=== PATIENT | female | born 1995 | race Caucasian/White ===

== ENCOUNTER 2019-12-29 13:10 | Emergency (ER) | payer BC, OTHER, SELFPAY ==
[2019-12-29 13:15] VITALS: BP 150/80; PULSE 80; RESP 18; TEMP 36.9; O2SAT 97
--- NOTE | 2019-12-29 15:18 | ED.BACK ---
HPI - Back Pain/Injury General Chief Complaint: Back Pain/Injury Stated Complaint: back pain/ fall on thursday Time Seen by Provider: 12/29/19 13:16 Source: patient Mode of arrival: ambulatory Limitations: no limitations History of Present Illness HPI Narrative: This is a 24 year old female that presents to the ER for low back pain since yesterday. Reports she did have a fall a couple days ago. Reports she tripped and fell forward and caught herself with her hands. Reports no pain after this fall. Reports yesterday she was giving her child a bath and went to stand up and felt a sharp pain on the left side of her back. Reports stiffness since then. Pain is worse with movement and relieved with rest and Acetaminophen. Denies fever, abdominal pain, dysuria, hematuria, saddle anesthesia, or bowel/bladder incontinence. Related Data Allergies Allergy/AdvReac Type Severity Reaction Status Date / Time aspirin AdvReac Unknown Abdominal Verified 12/29/19 15:27 Pain naproxen AdvReac Cramping Verified 12/29/19 15:27 of the Muscles Review of Systems Review of Systems: Narrative: CONSTITUTIONAL: Denies fever GASTROINTESTINAL: Denies abdominal pain, nausea, vomiting GENITOURINARY: Denies dysuria or hematuria. MUSCULOSKELETAL: Reports back pain, and myalgia. NEUROLOGIC: Denies numbness, or weakness. All systems reviewed & are unremarkable except as noted in HPI and below PMFSH Social History Social History Smoking packs per day: 0.5 Smoking cigarettes per day: 10.0 Years smoked: 5 Smoking pack-years: 2.50 Smoking status: Current every day smoker Tobacco type: cigarettes Second hand tobacco smoke exposure: Yes Alcohol intake: never Substance use: never Gender identity (if verbalized by the patient): Female Spiritual care concerns: No Exam Narrative: Exam Narrative: GENERAL: Well-appearing, well-nourished, and in no acute distress. HEAD: Normocephalic, atraumatic. EYES: EOMI. CHEST: Clear to auscultation. No respiratory distress. No wheezes rales or rhonchi HEART: Regular rate and rhythm. No murmur heard. Normal peripheral pulses. BACK: No midline spinal tenderness. Tender palpation of the left lumbar paraspinal musculature EXTREMITIES: Normal range of motion. No edema. Strength equal in bilateral lower extremities. Normal patellar reflexes SKIN: Warm, dry, no rash. NEURO: No focal deficits. Alert and oriented x3. PSYCH: Normal mood and affect Course Vital Signs Vital signs: Vital Signs Temperature 98.4 F 12/29/19 13:15 Pulse Rate 80 12/29/19 13:15 Respiratory Rate 18 12/29/19 13:15 Blood Pressure 150/80 H 12/29/19 13:15 Pulse Oximetry 97 12/29/19 13:15 Temperature 98.4 F 12/29/19 13:15 Pulse Rate 80 12/29/19 13:15 Respiratory Rate 18 12/29/19 13:15 Blood Pressure 150/80 H 12/29/19 13:15 Pulse Oximetry 97 12/29/19 13:15 MDM - Back Pain/Injury MDM Narrative Medical decision making narrative: Patient presents the emergency department for low back pain. Reports she stood up and felt a sharp pain in the left side of her low back. History consistent with muscle strain. She is neurologically intact. Patient was instructed to continue Tylenol and will be prescribed muscle relaxer as needed for pain. She is to follow-up with primary care doctor. She is given warnings to return to the ER Critical Care Time Critical Care Time Critical Care Time: No Discharge Plan Discharge Clinical Impression: Lumbar strain Qualifiers: Encounter type: initial encounter Qualified Code(s): S39.012A - Strain of muscle, fascia and tendon of lower back, initial encounter Patient Disposition: Home, Self-Care Condition: Stable Instructions: Muscle Strain (ED) Additional Instructions: Return to the ER if you experience weakness, numbness, bowel/bladder incontinence, or any other symptoms that are concerning to yo
[2019-12-29] MEDS: ACETAMINOPHEN 500 MG TABLET 1000 MG PO (15:51)
== END 2019-12-29 16:23 | disposition home or self-care (01) ==
PROVIDERS: Emergency Provider Emergency Medicine; PCP Internal Medicine
DX: S39.012A Strain of muscle, fascia and tendon of lower back, initial encounter (principal); F17.210 Nicotine dependence, cigarettes, uncomplicated; X50.9XXA Other and unspecified overexertion or strenuous movements or postures, initial encounter
CPT/HCPCS: 96372; 99283; A9270; J3360

== ENCOUNTER 2021-12-10 13:25 | Observation (INO) | payer OTHER, SELFPAY ==
[2021-12-10 14:07] VITALS: BP 137/79; PULSE 76
[2021-12-10 14:30] VITALS: TEMP 36.4
[2021-12-10 15:06] LABS: Appearance Urine Clear (Clear); Bilirubin Urine Negative (Negative); Blood Urine 3+ (Negative); Color Urine Yellow (Yellow); Glucose Urine UA 1+ mg/dL (Negative); Ketones Urine Negative (Negative); Leukocyte Esterase Ur Negative LEU/UL (NEGATIVE); Nitrate Urine Negative (Negative); Protein Urine 2+ mg/dL (Negative); Urobilinogen Urine 0.2 mg/dL (<2.0); pH Urine 7.5 (5.0-9.0)
[2021-12-10 15:16] LABS: RBC Urine >75 /hpf (0-2); Squamous Epithelial Cell Urine Rare /hpf (Few)
[2021-12-10 15:30] LABS: Add Urine Microscopic? YES
--- NOTE | 2021-12-10 17:25 | OBADM ---
This patient, Nas Veliz, admitted to the OB room OB Post 113 for observation. Patient/family oriented to hospital policies and general routines including ID bracelet, bed and alarms, visiting hours, pain management, procedures, bathroom and other care routines, personal items, smoking policy, room service/diet, and visiting hours. Patient/Family are encouraged to report perceived risks to care and to ask questions if they do not understand what they are told or what they should do.
--- NOTE | 2021-12-10 17:30 | PC.NURSE ---
1547-SEvita STALLWORTH called,informed pt came in after being started on macrobid on Thursday for an UTI. She states she feels worse now with right sided back pain and lower abdominal pressure. Read UA results, orders received for antibiotics to be sent out for pt.
--- NOTE | 2021-12-10 17:32 | PC.NURSE ---
1611-SEvita [facility] called back,informed pt has an allergy to amoxicillin. New order received to send out clindamycin for pt to start at home.
--- NOTE | 2021-12-11 19:15 | PM.OBTRLD ---
OB - Triage/Final Diagnosis Visit Information Date of evaluation: 12/10/21 Reason for evaluation: other (UTI) Comments/Additional reasons for admission: I have assessed the risk for this patient, Nas Veliz, and determined that she would benefit from observation care. Evaluation Laboratory results: Laboratory Tests 12/10/21 14:38 Urine Color Yellow Urine Appearance Clear Urine pH 7.5 Ur Specific [place] 1.020 Urine Protein 2+ H Urine Glucose (UA) 1+ H Urine Ketones Negative Ur Blood (Man) 3+ H Urine Nitrate Negative Urine Bilirubin Negative Urine Urobilinogen 0.2 Ur Leukocyte Esterase Negative Urine RBC >75 H Ur Squamous Epith Cells Rare
--- NOTE | 2021-12-11 19:16 | PM.IMHP ---
H&P: HPI History of Present Illness Date/Time: 12/11/21 19:16 pt admitted for increased right flank pain, being tx with antibiotics for UTI and returned this am with increasing pain and vomiting us showed left kidney stone, nonobstructing, and mild right hydronephrosis Chief Complaint: Flank pain Review of Systems Review of Systems: All systems reviewed & are unremarkable except as noted in HPI and below PMFSH Past Medical History Medical History (Updated 03/20/20 @ 16:22 by Fernando Archer MD) Anemia Anxiety Depression Diabetes borderline Fracture multiple Hypertension Miscarriage Scoliosis Surgical History Surgical History H/O adenoidectomy Hx of tonsillectomy Family History Family History Mother Family history of thyroid disease Hypertension Father Hypertension Family history of type 2 diabetes mellitus Grandparent Hypertension Sibling Patient's brother is in good health Family history of type 1 diabetes mellitus, Onset Age: 13 Social History Social History Smoking packs per day: 0.5 Smoking cigarettes per day: 10.0 Years smoked: 5 Smoking pack-years: 2.50 Smoking status: Current every day smoker Tobacco type: cigarettes Second hand tobacco smoke exposure: Yes Alcohol intake: never Substance use: never Gender identity (if verbalized by the patient): Female Spiritual care concerns: No Meds Home Medications and Allergies Home Medications Medication Instructions Recorded Confirmed Type clindamycin HCl 300 mg PO BID #14 cap 12/10/21 12/11/21 Rx Allergies Allergy/AdvReac Type Severity Reaction Status Date / Time aspirin AdvReac Unknown Abdominal Verified 12/29/19 15:27 Pain amoxicillin AdvReac Rash Verified 12/11/21 07:27 naproxen AdvReac Cramping Verified 12/29/19 15:27 of the Muscles Exam Narrative: NO CVA tenderness Const: General: cooperative and healthy appearing Assessment and Plan Additional Plan 1. UTI/hydronephrosis continue antibiotics pain management
--- NOTE | 2021-12-11 19:19 | PM.OBPNLAB ---
Pain Control Date/time seen: 12/11/21 19:[address] Lawler plan abdominal us in the am
== END 2021-12-10 16:40 | disposition home or self-care (01) ==
PROVIDERS: Advanced Practice Midwife; Admitting Provider Obstetrics & Gynecology; Visit Provider Obstetrics & Gynecology
DX: O23.42 Unspecified infection of urinary tract in pregnancy, second trimester (principal); N39.0 Urinary tract infection, site not specified; O99.332 Smoking (tobacco) complicating pregnancy, second trimester; F17.210 Nicotine dependence, cigarettes, uncomplicated; Z3A.21 21 weeks gestation of pregnancy; N13.30 Unspecified hydronephrosis; N20.0 Calculus of kidney
CPT/HCPCS: 81001; 87086; G0378; G0379

== ENCOUNTER 2021-12-11 06:55 | Observation (INO) | payer OTHER, SELFPAY ==
--- NOTE | ~2021-12-11 | CT_ITS ---
EXAMINATION: CT abdomen pelvis wo con DATE: 12/11/2021 21:36 INDICATION: Acute right flank pain, patient is 21 weeks TECHNIQUE: Computed tomography (CT) of the abdomen and pelvis was performed without intravenous contr ast. The dose-length product (DLP) was 686.96 mGy-cm. Automated exposure control and iterative recons truction technique were employed. COMPARISON: None FINDINGS: The lung bases are clear. The heart size is normal. The liver, spleen, pancreas, gallbladde r, and adrenal glands are normal. There is a 12 mm stone at the right ureterovesicular junction which causes mild to moderate right hydroureteronephrosis. Nonobstructing stones of the right kidney measu re up to 7 mm. There is a 9 mm nonobstructing stone of the left kidney upper pole. No pathologically enlarged abdominal or pelvic lymph nodes are identified. There is no free intraperitoneal gas or evid ence of bowel obstruction. A gravid uterus is noted. IMPRESSION: 1. 12 mm stone at the right ureterovesicular junction causing mild to moderate right hydroureteroneph rosis. 2. Bilateral nonobstructing nephrolithiasis. Reviewed, dictated and finalized at location F. IMPRESSION: 1. 12 mm stone at the right ureterovesicular junction causing mild to moderate right hydroureteronephrosis. 2. Bilateral nonobstructing nephrolithiasis.
--- NOTE | ~2021-12-11 | US_ITS ---
EXAMINATION: US renal BI DATE: 12/11/2021 08:25 INDICATION: Right flank pain. TECHNIQUE: Multiple ultrasound grayscale images of the kidneys were obtained. COMPARISON: None. FINDINGS: The right kidney measures 14.0 x 7.3 x 7.0 cm. The left kidney measures 12.7 x 4.7 x 5.7 cm. The kidn eys demonstrate normal parenchymal echogenicity. There is mild right hydronephrosis. There is a stone in left kidney measuring approximately 1.6 cm. The bladder is normal. IMPRESSION: 1. Mild right hydronephrosis. 2. Nonobstructing left kidney stone. Reviewed, dictated and finalized at location B.
--- NOTE | ~2021-12-11 | US_ITS ---
EXAMINATION: US OB limited EXAM DATE: 12/11/2021 08:25 INDICATION: HR, placenta check. 2nd trimester. TECHNIQUE: Pelvic obstetrical transabdominal sonogram was performed by a technologist. There are mu ltiple grayscale and Doppler images available for interpretation. Comparison is made to prior examina tion from 09/07/2019. FINDINGS: There is a single fetus identified in vertex presentation with a heart rate of 141 beats pe r minute. The placenta is located in the anterior position. There is no sonographic evidence of retr oplacental hemorrhage identified. There is subjectively expected amount of amniotic fluid. IMPRESSION: 1. Single fetus in vertex presentation with heart rate 141 beats per minute. 2. No sonographic evidence of placental abnormality. Reviewed, dictated and finalized at location A.
[2021-12-11 07:19] VITALS: BMI 36.2
--- NOTE | 2021-12-11 07:20 | OBADM ---
This patient, Nas Veliz, admitted to the OB room OB Post 116 for observation. Patient/family oriented to hospital policies and general routines including ID bracelet, bed and alarms, visiting hours, pain management, procedures, bathroom and other care routines, personal items, smoking policy, room service/diet, and visiting hours. Patient/Family are encouraged to report perceived risks to care and to ask questions if they do not understand what they are told or what they should do.
--- NOTE | 2021-12-11 07:25 | PC.NURSE ---
Shaun Loving CNM in unit. Order to dopple FHT and have ultrasound perform well being and placenta check. Order to not do continuous monitoring on patient.
[2021-12-11 07:28] VITALS: RESP 18; TEMP 36.5
[2021-12-11 07:29] VITALS: BP 145/85; PULSE 72
--- NOTE | 2021-12-11 07:33 | PC.NURSE ---
Notified Dr. Rashid and Shaun Loving CNM of patient allergy to amoxicillin. Order to proceed with administration of Rocephin IVPB and monitor for reaction.
--- NOTE | 2021-12-11 07:35 | PC.NURSE ---
Shaun Loving CNM and Baltazar Elmore, [employer] student at bedside. Plan of care discussed with patient. Patient states understanding of plan of care and agrees to plan of care. Patient denies questions.
[2021-12-11 07:55] LABS: Hematocrit 33.9 % (37.0-47.0); Hemoglobin 10.8 g/dL (12.0-15.0); Mean Corpuscular HGB Conc 31.9 g/dl (32-36); Mean Corpuscular Hemoglobin 27.1 pg (26-34); Mean Platelet Volume 11.7 fl (7.4-10.4); Platelet Count Result 169 k/mm3 (150-375); Red Blood Count 3.99 M/mm3 (4.2-5.4); Red Cell Distribution Width 13.3 % (11.5-14.5); White Blood Count 14.7 K/mm3 (4.5-10.0)
[2021-12-11 08:03] LABS: Alanine Aminotransferase 11 U/L (4-35); Albumin Level 3.6 g/dL (3.5-5.1); Alkaline Phosphatase 90 U/L (38-126); Anion Gap 7 mmol/L (8-16); Aspartate Amino Transferase 16 U/L (14-36); Bilirubin,Total 0.2 mg/dL (0.2-1.3); Blood Urea Nitrogen 6 mg/dL (7-17); Carbon Dioxide 22 mmol/L (22-30); Chloride 105 mmol/L (98-107); Estimated CRCL calculation 132 ml/min; Estimated Glomerular Filt Rate > 60; Glucose 133 mg/dL (65-110); Potassium 3.6 mmol/L (3.4-5.0); Sodium 134 mmol/L (137-145)
[2021-12-11] MEDS: ONDANSETRON INJ 4 MG/2 ML VIAL IV PUSH ×3 (08:31→20:52)
[2021-12-11] MEDS: SODIUM CHLORIDE 0.9% IV 1,000 ML 150 ML IV CONT (08:38)
[2021-12-11] MEDS: cefTRIAXone 2 GM in SODIUM CHLORIDE 0.9% IV 100 ML 200 ML IVPB (08:55)
[2021-12-11] MEDS: LACTATED RINGERS 1,000 ML 125 ML IV CONT ×2 (09:39→16:55)
[2021-12-11 09:46] VITALS: BP 146/72; PULSE 70
--- NOTE | 2021-12-11 10:00 | PC.NURSE ---
Lynda Loving called for update on pt status. Lab results given. Update on pt pain level and BPs given. Orders received.
[2021-12-11] MEDS: CYCLOBENZAPRINE HCL 10 MG TABLET PO (10:11)
--- NOTE | 2021-12-11 11:16 | PC.NURSE ---
Notified Shaun Loving CNM of patient continued pain following medication administration. Patient reports pain has increased since pain medication as administered, patient now reporting nausea. Order to perform SVE and call following exam.
[2021-12-11] MEDS: fentaNYL CITRATE INJ (*CRX) 100 MCG/2 ML VIAL 50 MCG IV PUSH ×3 (11:33→20:53)
--- NOTE | 2021-12-11 12:31 | PC.NURSE ---
Shaun Loving updated on pt pain level at a 6 after fentynl, but increasing already. New orders received.
[2021-12-11] MEDS: HYDROcodone/acetaminophen (*CRX) 5-325 MG TABLET 1 TAB PO (12:37)
--- NOTE | 2021-12-11 12:43 | PC.NURSE ---
Overrode 3 medications from [facility] due to new medication orders not showing up. Charge nurse made aware and called IT who discovered a problem and working on it now.
--- NOTE | 2021-12-11 14:30 | PC.NURSE ---
Updated Shaun Loving on patient pain scale of 8/10
--- NOTE | 2021-12-11 15:20 | PC.NURSE ---
Updated Shaun Loving on pt pain and request for IV fentanyl and nausea medication. Orders received.
[2021-12-11 15:30] VITALS: RESP 16; TEMP 36.9
[2021-12-11 15:31] VITALS: BP 138/74; PULSE 83
[2021-12-11 17:18] LABS: Hematocrit 29.5 % (37.0-47.0); Hemoglobin 9.7 g/dL (12.0-15.0); Mean Corpuscular HGB Conc 32.9 g/dl (32-36); Mean Corpuscular Hemoglobin 27.6 pg (26-34); Mean Corpuscular Volume 83.8 fl (80-100); Platelet Count Result 180 k/mm3 (150-375); Red Blood Count 3.52 M/mm3 (4.2-5.4); Red Cell Distribution Width 13.2 % (11.5-14.5); White Blood Count 14.6 K/mm3 (4.5-10.0)
[2021-12-11] MEDS: HYDROcodone/acetaminophen (*CRX) 10-325 MG TABLET 1 TAB PO (18:16)
--- NOTE | 2021-12-11 18:40 | PC.NURSE ---
Inder updated on pt status and pain and nausea. Orders given for Pepcid.
[2021-12-11] MEDS: FAMOTIDINE 20 MG/2 ML VIAL IV PUSH (18:51)
--- NOTE | 2021-12-11 18:58 | PC.NURSE ---
Report given to ANTONY Sweeney.
--- NOTE | 2021-12-11 19:10 | PC.NURSE ---
K-pad applied to right lower back per pt request
--- NOTE | 2021-12-11 21:20 | PC.NURSE ---
CT here to transport pt. Pt moved to stretcher to go to CT.
--- NOTE | 2021-12-11 21:40 | PC.NURSE ---
pt back in room from CT
[2021-12-11 22:42] VITALS: BP 129/75; PULSE 85
[2021-12-11] MEDS: oxyCODONE/ACETAMINOPHEN (*CRX) 5-325 MG TABLET 1 TABLET PO (23:12)
[2021-12-12] VITALS (10 sets, daily range): BP systolic 100–136; BP diastolic 55–75; PULSE 70–87; RESP 12–23; TEMP 36.8–37.8; O2SAT 98–100
[2021-12-12] MEDS: DEXTROSE 5%/LACTATED RINGERS 1,000 ML 100 ML IV CONT (00:04)
--- NOTE | 2021-12-12 02:31 | PC.NURSE ---
2032- pt crying in pain- 910 right flank pain. order received from Shaun Loving CNM to give Fentanyl 50mcg IV once. Will consult Dr. Lawler regarding pain .
--- NOTE | 2021-12-12 02:34 | PC.NURSE ---
2043- Mayra STALLWORTH and Baltazar Elmore student financial controller at bedside. pt feeling nauseous. will give zofran for nausea.
--- NOTE | 2021-12-12 02:36 | PC.NURSE ---
2058- Dr. Lawler at bedside. pain location and type of pain discussed. Order received for CT abd/pelvis.
--- NOTE | 2021-12-12 02:37 | PC.NURSE ---
2211- called Shaun Loving CNM- discussed CT results- orders received for urology consult, continue IV fluids, dopple heart tones once a shift, and continue to manage pain. order received for Toradol 30mg IV once. will continue to monitor pt and call with questions/concerns.
--- NOTE | 2021-12-12 02:38 | PC.NURSE ---
2225- went in to discuss plan of care with pt. pt not able to take any type of NSAIDS due to severe abd pain.
--- NOTE | 2021-12-12 02:40 | PC.NURSE ---
2240- SKylah Loving [facility] informed that pt not able to take any type of NSAIDS. will discuss with Dr. Lawler and call back with pain management plan.
--- NOTE | 2021-12-12 02:41 | PC.NURSE ---
2245- SKylah Loving [facility]- called back. order received for Percocet 5/325mg every 4 hours PRN. will continue to monitor and call if questions/concerns.
[2021-12-12] MEDS: oxyCODONE/ACETAMINOPHEN (*CRX) 5-325 MG TABLET 1 TABLET PO ×4 (03:50→19:57)
--- NOTE | 2021-12-12 05:47 | PC.NURSE ---
pt resting quietly. discussed plan for the day- urology consult, IV fluids, pain management.
--- NOTE | 2021-12-12 07:49 | PM.OBPNVD ---
OB - PN: Subj Subjective Date/time seen: 12/12/21 07:49 Pain is not controlled on Percocet. Continued pain however. Stone revealed on CT scan the abdomen and pelvis. 1.2 cm at the right UVJ. OB - PN: Obj Data Labs CBC & Chem 7: 12/11/21 17:03 12/11/21 07:46 Labs: Laboratory Results - last 24 hr 12/11/21 12/11/21 12/11/21 07:46 07:46 17:03 WBC 14.7 H 14.6 H RBC 3.99 L 3.52 L Hgb 10.8 L 9.7 L Hct 33.9 L 29.5 L MCV 85.0 83.8 MCH 27.1 27.6 MCHC 31.9 L 32.9 RDW 13.3 13.2 Plt Count 169 180 MPV 11.7 H 12.0 H Sodium 134 L Potassium 3.6 Chloride 105 Carbon Dioxide 22 Anion Gap 7 L BUN 6 L Creatinine 0.70 Estim Creat Clear Calc 132 Estimated GFR > 60 Glucose 133 H Calcium 9.0 Total Bilirubin 0.2 AST 16 ALT 11 Alkaline Phosphatase 90 Total Protein 7.0 Albumin 3.6 Imaging Radiologist's impression: Impressions Renal Ultrasound 12/11/21 08:30 IMPRESSION: 1. Mild right hydronephrosis. 2. Nonobstructing left kidney stone. ADDENDUM: 12/11/21901 Upon further review, the 1.6 cm echogenic focus in left kidney does not definitely shadow and is indeterminant for a nonobstructing kidney stone. Obstetrics Ultrasound 12/11/21 08:31 IMPRESSION: 1. Single fetus in vertex presentation with heart rate 141 beats per minute. 2. No sonographic evidence of placental abnormality. Abdomen/Pelvis CT 12/11/21 21:46 IMPRESSION: 1. 12 mm stone at the right ureterovesicular junction causing mild to moderate right hydroureteronephrosis. 2. Bilateral nonobstructing nephrolithiasis. OB - PN A/P Assessment and Plan (1) Kidney stone complicating : Code(s): O26.839 - related renal disease, unspecified trimester; N20.0 - Calculus of kidney Status: Acute Assessment and Plan: improved pain on Percocet. Continued pain however. Stone revealed on CT scan the abdomen and pelvis. 1.2 cm at the right UVJ. urology to see her today. Consider discharge with outpatient pain management and observation. To follow-up within a week. Time Spent With Patient Time: Total time spent is greater than 50% in coordination of care (as documented) at patient's floor/unit and/or counseling patient: Review of Systems Review of Systems: All systems reviewed & are unremarkable except as noted in HPI and below Constitutional: Constitutional: Denies chills, Denies fatigue, Denies fever(s) and Denies weakness Eyes: Eyes: Denies blurry vision, Denies change in vision, Denies loss of peripheral vision, Denies loss of vision, Denies other visual disturbances and Denies eye pain ENT: Denies vertigo, Denies dizziness, Denies hearing loss, Denies mouth pain, Denies nasal obstruction, Denies neck mass and Denies neck pain Cardiovascular: Cardiovascular: Denies chest pain, Denies diaphoresis, Denies syncope, Denies leg edema and Denies dyspnea Respiratory: Respiratory: Denies chest congestion, Denies cough, Denies hemoptysis, Denies dyspnea and Denies wheezing Gastrointestinal: Gastrointestinal: Denies abdominal pain, Denies constipation, Denies diarrhea, Denies nausea and Denies vomiting Genitourinary: Genitourinary: Denies hematuria, Denies change in libido, Denies nocturia, Denies genital lesions, Denies flank pain and Denies urinary urgency Musculoskeletal: Musculoskeletal: Denies abnormal gait, Denies back pain, Denies myalgias, Denies arthralgias, Denies joint swelling, Denies muscle weakness and Denies neck pain Integumentary/Breasts: Skin/Breast: Denies swelling, Denies breast pain, Denies breast mass, Denies dry skin, Denies nipple discharge, Denies unusual bruising and Denies jaundice Neurologic: Denies Neuro-related abnormal movements, Denies Abnormal speech present, Denies abnormal gait, Denies behavioral changes, Denies confusion, Denies vertigo, Denies dizziness, Denies syncope, Denie
[2021-12-12] MEDS: ONDANSETRON INJ 4 MG/2 ML VIAL IV PUSH ×2 (08:17→18:11)
--- NOTE | 2021-12-12 08:28 | PC.NURSE ---
4202 heart rate doppled 140-147
--- NOTE | 2021-12-12 08:46 | WPDURCON ---
Assessment and Plan Assessment and plan (1) Kidney stone complicating : Code(s): O26.839 - related renal disease, unspecified trimester; N20.0 - Calculus of kidney Status: Acute (2) Left ureteral stone: Code(s): N20.1 - Calculus of ureter Status: Acute Assessment and Plan: I have reviewed her images with Dr. Fang and discussed options of Cystoscopy with stone extraction versus placement of a right nephrostomy tube with changes until delivery. She understands the risks and benefits of both procedures with the main focus on risks during . She was also given the opportunity to watch the stone over the next 24 hours, however d/t the large size of the stone, she was informed that it is not passable and she would likely result in having either of the above procedures tomorrow. She has elected to move forward with cystoscopy and stone extraction with Dr. Fang today in the OR. Obtain Consent: Cystoscopy, right ureteroscopy with stone extraction, possible right stent placement, right retrograde pyelogram, holmium laser. Keep NPO. (3) Bilateral renal stones: Code(s): N20.0 - Calculus of kidney Status: Acute Assessment and Plan: Non obstructive. After delivery, I recommend a KUB and then ESWL for her stones in the future. No need to intervene at this time. Urology Consult Note HPI Date Seen: 12/12/21 Requesting Physician: Imelda Lawler MD Primary Care Provider: UNKNOWN,DOCTOR Consult Narrative Narrative: Nas Veliz is a 26 year old female who presented initially to OB on 12/10/21 with acute onset of right lower quadrant pain that radiated to her right flank. She is 21 weeks . She was treated for a UTI and discharged home. The next day her pain became more severe and was accompanied by nausea and vomiting. She denies gross hematuria, dysuria but is experiencing urgency and frequency of urination. She had a MEGAN done yesterday indicating right hydronephrosis and a non obstructive left stone. Her pain was not well controlled therefore a CT scan was done. The CT then revealed a 12mm right UVJ stone with mild to moderate right hydronephrosis and bilateral non obstructive stones measuring up to 9mm in the left kidney and 7mm in the right kidney. Her urine culture is negative. She was admitted for pain control and we were consulted. Her WBC is elevated at 14.6 and she is febrile with a low grade temperature of 100 this morning. Creatinine remains normal at 0.70. She denies a history of stones or chronic UTI's. Review of Systems Cardiovascular: Cardiovascular: Denies chest pain Respiratory: Respiratory: Reports no additional respiratory complaints Gastrointestinal: Gastrointestinal: Reports abdominal pain, Reports nausea and Reports vomiting Genitourinary: Genitourinary: Denies hematuria, Reports nocturia, Denies dysuria and Reports urinary urgency [facility] Past Medical History Medical History (Updated 12/12/21 @ 08:59 by Albina Roberto APRN) Anemia Anxiety Depression Diabetes borderline Fracture multiple Hypertension Miscarriage Scoliosis Surgical History Surgical History H/O adenoidectomy Hx of tonsillectomy Family History Family History Mother Family history of thyroid disease Hypertension Father Hypertension Family history of type 2 diabetes mellitus Grandparent Hypertension Sibling Patient's brother is in good health Family history of type 1 diabetes mellitus, Onset Age: 13 Social History Social History Smoking packs per day: 0.5 Smoking cigarettes per day: 10.0 Years smoked: 5 Smoking pack-years: 2.50 Smoking status: Current every day smoker Tobacco type: cigarettes Second hand tobacco smoke exposure: Yes Alcohol intake: never
[2021-12-12] MEDS: cefTRIAXone 2 GM in SODIUM CHLORIDE 0.9% IV 100 ML 200 ML IVPB (09:05)
[2021-12-12] MEDS: FAMOTIDINE 20 MG/2 ML VIAL IV PUSH (09:13)
--- NOTE | 2021-12-12 10:41 | WPDANESEPPF ---
Anes - Initial Pre Proc Eval Procedure: Operation Date: 12/12/21 12:30 Proposed Procedures p Cystoscopy, Right Retrograde Pyelogram, Right Stone Extraction, Possible Right Stent Placement, Possible Holmium Laser - Donny Fang MD Date/Time: 12/12/21 10:41 Surgeon: Imelda Lawler MD Pre Op Diagnosis: R Side Pain Patient Data Age: 26 Gender: F Height: 1.7 m Weight: 105 kg Last Vital Signs Temp 37.8 C H 12/12/21 07:40 Pulse 87 12/12/21 07:40 Resp 12 12/12/21 07:40 BP 127/67 12/12/21 07:40 Allergies Allergy/AdvReac Type Severity Reaction Status Date / Time aspirin AdvReac Unknown Abdominal Verified 12/29/19 15:27 Pain amoxicillin AdvReac Rash Verified 12/11/21 07:27 naproxen AdvReac Cramping Verified 12/29/19 15:27 of the Muscles Home Medications Medication Instructions Recorded Confirmed Type clindamycin HCl 300 mg PO BID #14 cap 12/10/21 12/11/21 Rx Laboratory Tests 12/11/21 17:03 WBC 14.6 K/mm3 H K/mm3 (4.5-10.0) RBC 3.52 M/mm3 L M/mm3 (4.2-5.4) Hgb 9.7 g/dL L g/dL (12.0-15.0) Hct 29.5 % L % (37.0-47.0) MCV 83.8 fl fl (80-100) MCH 27.6 pg pg (26-34) MCHC 32.9 g/dl g/dl (32-36) RDW 13.2 % % (11.5-14.5) Plt Count 180 k/mm3 k/mm3 (150-375) MPV 12.0 fl H fl (7.4-10.4) Patient hx anesthesia problems: none Family hx anesthesia problems: none Results Review: All pre-operative results and documents have been reviewed as part of the pre-operative evaluation. [facility] Past Medical History Medical History (Updated 12/12/21 @ 11:35 by Kalia Keller DO) Anemia Anxiety Depression Fracture multiple Hypertension Miscarriage Scoliosis Surgical History Surgical History H/O adenoidectomy Hx of tonsillectomy Family History Family History Mother Family history of thyroid disease Hypertension Father Hypertension Family history of type 2 diabetes mellitus Grandparent Hypertension Sibling Patient's brother is in good health Family history of type 1 diabetes mellitus, Onset Age: 13 Social History Social History Smoking packs per day: 0.5 Smoking cigarettes per day: 10.0 Years smoked: 5 Smoking pack-years: 2.50 Smoking status: Current every day smoker Tobacco type: cigarettes Second hand tobacco smoke exposure: Yes Alcohol intake: never Substance use: never Gender identity (if verbalized by the patient): Female Spiritual care concerns: No Anes - Eval Final PreProcedure Day of Procedure 12/12/21 10:41 Patient weight: obese Heart: regular rate and rhythm Lungs: clear to auscultation and normal air movement Airway: Mallampati scale class II Neurological: alert and oriented Last oral intake: >/= 8 hours ASA classification: II Emergent: no Anesthetic plan: proceed Anesthesia type and monitoring: general GIVS, regional spinal and standard monitoring Results Review: All pre-operative results and documents have been reviewed as part of the pre-operative evaluation. Informed Consent: The patient's anesthetic plan and its attendant risks and benefits were discussed with the patient/family/POA. Questions were solicited and answers provided to the satisfaction of the patient/family/POA.
[2021-12-12] MEDS: LACTATED RINGERS 1,000 ML 125 ML IV CONT (10:46)
[2021-12-12] MEDS: LACTATED RINGERS 1,000 ML 30 ML IV CONT ×2 (10:55→13:14)
--- NOTE | 2021-12-12 10:55 | PC.NURSE ---
1054 pt transported per or staff and stretcher to pre op
--- NOTE | 2021-12-12 11:57 | WPDHPUPDATE1 ---
History and Physical Update Update Date/Time: 12/12/21 11:57 History and Physical has been reviewed, including an updated exam of the patient. There are NO changes in the patient's condition. Risks, benefits, and alternatives have been discussed and questions answered. Patient agrees to proceed with procedure. Proceed with cystoscopy, right retrograde, right ureteroscopy with laser, stone extraction and stent placement.
--- NOTE | 2021-12-12 12:23 | SUR.PREOP ---
1055; PT HAS IL LR ON ANESTHESIA TUBING INFUSING AT O FROM OB RN.
--- NOTE | 2021-12-12 13:10 | W.PM.PROC2 ---
Procedure Note - Detailed Date of Procedure 12/12/21 Pre-op Diagnosis R Side Pain, presumed 12 mm right UVJ calculus Post-op Diagnosis Other (Simply debris at UVJ with edematous right ijeoma trigone) Procedure Performed Cystoscopy, right ureteroscopy, right stent placement 4.8 Guyanese contour Surgeon Donny Fang MD Anesthesia Spinal Description of Procedure Patient was taken to the operative suite and correctly identified. Once anesthesia was obtained she was placed in the dorsal lithotomy position and prepped and draped usual sterile fashion. A 22 Guyanese scope was inserted into the bladder. There are no tumors noted. The right ijeoma trigone is raised and inflamed. The opening contains what appears to be a calculus. We thus exchanged the scope out for a rigid ureteral scope. Simply touching the presumed stone with the ureteral scope and holmium laser fiber the area in question just disintegrated. The stone was as if it was just simply debris that had gathered at the UVJ. A rigid ureteral scope was inserted into the orifice there was no other stones noted. A mini flexible ureteral scope was then passed up into the kidney no other stone visualized along the course of the ureter. A guidewire was positioned well in the renal pelvis. We then placed a 4.8 Guyanese contour stent with the proximal end presumed to be coiled in the renal pelvis and the distal end coiled in the bladder. A string was left attached to the stent so the patient can remove that on Thursday. Bladder was drained. 2% viscous lidocaine was inserted into the urethra. Patient was taken recovery room stable condition. Urine Output 200 Drains Yes Packing No Pathology None sent Complications No immediate complications Condition Stable Disposition PACU
--- NOTE | 2021-12-12 13:26 | SUR.PHASEI ---
1325 Sabine Eisenberg(ob rn) at bedside to check tones, hr-130, all is well
--- NOTE | 2021-12-12 13:49 | SUR.PHASEI ---
1330 patient has feeling in her feet but is unable to move feet/legs
--- NOTE | 2021-12-12 14:11 | SUR.PHASEI ---
1410 patient has feeling in b/l legs/feet but is unable to move feet. patient is able to squeeze butt cheeks together
[2021-12-12] MEDS: fentaNYL CITRATE INJ (*CRX) 100 MCG/2 ML VIAL 50 MCG IV PUSH (15:21)
--- NOTE | 2021-12-12 15:52 | PC.NURSE ---
1506- called,informed pt is back from PACU and is rating her pain a 9/10. Orders received for fentanyl now and percocet for pain management throughout the night. Pt will stay overnight.
[2021-12-12] MEDS: fentaNYL CITRATE INJ (*CRX) 100 MCG/2 ML VIAL IV PUSH (18:02)
[2021-12-13] MEDS: oxyCODONE/ACETAMINOPHEN (*CRX) 5-325 MG TABLET 1 TABLET PO ×4 (00:03→13:00)
[2021-12-13 00:05] VITALS: BP 121/67; PULSE 79; TEMP 36.6
[2021-12-13] MEDS: ONDANSETRON INJ 4 MG/2 ML VIAL IV PUSH ×3 (01:31→13:00)
[2021-12-13 04:20] VITALS: BP 118/66; PULSE 80
--- NOTE | 2021-12-13 07:28 | P.PNOB_ITS ---
OB - PN: Subj Subjective Date/time seen: 12/13/21 07:28 s/p cystoscopy and stent placement. Pt doing well, pain managed with percocet and nausea with zofran. uncomplicated obstetric hx OB - PN: Obj Data Labs CBC & Chem 7: 12/11/21 17:03 12/11/21 07:46 OB - PN A/P Plan Comments: 1. post op cystoscopy and stent placement pain management will ok for discharge pending urology visit, plan percocet at [facility] for pain relief Time Spent With Patient Time: Total time spent is greater than 50% in coordination of care (as documented) at patient's floor/unit and/or counseling patient: Review of Systems Review of Systems: All systems reviewed & are unremarkable except as noted in HPI and below Exam Const: General: cooperative, healthy appearing and comfortable
[2021-12-13 08:00] VITALS: TEMP 36.4
[2021-12-13 08:03] VITALS: BP 114/62; PULSE 65
--- NOTE | 2021-12-13 08:55 | WPDANESPN ---
Anes - Prog Note Post-Op Date/Time: 12/13/21 08:55 Cardiovascular status: normal Respiratory status: normal Airway patency: baseline Mental status: baseline Post-Op hydration status: normal Vital Signs: Last Vital Signs Temp 97.6 F 12/13/21 08:00 Pulse 65 12/13/21 08:03 Resp 15 12/12/21 15:00 BP 114/62 12/13/21 08:03 Pulse Ox 99 12/12/21 14:20 Pain Score (VAS): 0 I/O: Intake & Output 12/12/21 12/13/21 12/13/21 23:59 07:59 15:59 Intake Total 1000 Output Total 2050 Balance -1050 Laboratory Tests 12/11/21 17:03 12/11/21 07:46 Post-procedural complaints: none Patient Feedback: Patient satisfied with anesthetic care.
[2021-12-13] MEDS: cefTRIAXone 2 GM in SODIUM CHLORIDE 0.9% IV 100 ML 200 ML IVPB (09:05)
--- NOTE | 2021-12-13 12:44 | WPDUROPN2 ---
Progress Note: A&P Assessment and Plan (1) Bilateral renal stones: Code(s): N20.0 - Calculus of kidney Status: Acute Assessment and Plan: Will plan to f/u in the office after delivery in the fall to discuss an ESWL. NO further intervention at this time. (2) Left ureteral stone: Code(s): N20.1 - Calculus of ureter Status: Acute Assessment and Plan: Stone not present, unsure of the type of material blocking the UO, howver not of stone consistency. It was removed in it's entirety and a stent was placed with a string left on it. She will remove the stent on Thursday at home. No need for further intervention. Subjective Subjective Date/Time Seen: 12/13/21 12:44 POD #1 Cystoscopy, right ureteroscopy, right stent placement 4.8 Burkinan contour Patient doing very well today, pain is much improved. No stone was removed as the material blocking the ureter was easily extracted but didn't consist of stone substance. A stent was left in which she is tolerating well. Review of Systems Cardiovascular: Cardiovascular: Denies chest pain Respiratory: Respiratory: Reports no additional respiratory complaints Gastrointestinal: Gastrointestinal: Reports abdominal pain, Denies nausea and Denies vomiting Genitourinary: Genitourinary: Reports hematuria, Denies dysuria, Denies pelvic pain, Denies flank pain and Reports urinary urgency Exam Resp: Effort & Inspection: normal respiratory effort Cardio: Rate: regular rate GI: GI Palp: Yes Soft to palpation and No Tenderness to palpation present (GI) : General: Yes no CVA tenderness Extrem: General: no edema Objective Data Vital Signs Vital Signs: Vital Signs - 24 hr 12/12/21 13:20 12/12/21 13:35 12/12/21 13:50 Temperature Pulse Rate 70 75 76 Respiratory Rate 23 H 20 18 Blood Pressure 100/55 L 116/55 L 121/59 L Pulse Oximetry 98 100 100 12/12/21 14:05 12/12/21 14:20 12/12/21 15:00 Temperature 99.9 F H Pulse Rate 80 78 84 Respiratory Rate 22 H 22 H 15 Blood Pressure 120/62 116/65 136/75 Pulse Oximetry 99 99 12/12/21 15:01 12/13/21 00:05 12/13/21 04:20 Temperature 97.8 F Pulse Rate 84 79 80 Respiratory Rate Blood Pressure 136/75 121/67 118/66 Pulse Oximetry 12/13/21 08:00 12/13/21 08:03 Temperature 97.6 F Pulse Rate 65 Respiratory Rate Blood Pressure 114/62 Pulse Oximetry Intake/Output Intake/Output: Intake & Output 12/10/21 12/11/21 12/12/21 12/13/21 23:59 23:59 23:59 23:59 Intake Total 1200 2450 1100 Output Total 450 1800 2150 Balance 750 650 -1050 Meds/Results Medications: Active Medications Generic Name Dose Route Start Last Admin Trade Name Freq PRN Reason Stop Dose Admin Sodium Chloride 1,000 mls @ 150 mls/hr 12/11/21 07:35 12/11/21 09:40 Normal Saline Iv IV CONT 0 mls/hr .[id number] VENKATESH Infusion Ceftriaxone Sodium 2 gm/ 100 mls @ 200 mls/hr 12/12/21 09:00 12/13/21 09:40 Sodium Chloride IVPB Infused Q24H VENKATESH Infusion Ondansetron HCl 4 mg 12/11/21 20:45 12/13/21 08:11 Ondansetron Inj 4 Mg/2 Ml Vial IV PUSH 4 mg Q4H PRN Administration Nausea And Vomiting Oxycodone/Acetaminophen 1 tablet 12/11/21 22:46 12/13/21 07:59 Oxycodone/Acetaminophen (*Crx) 5-325 Mg Tablet PO 1 tablet Q4H PRN Administration Pain Rated 7-10 Radiology Results: ITS Impressions Renal Ultrasound 12/11/21 08:30 IMPRESSION: 1. Mild right hydronephrosis. 2. Nonobstructing left kidney stone. ADDENDUM: 12/11/21 09 Upon further review, the 1.6 cm echogenic focus in left kidney does not definitely shadow and is indeterminant for a nonobstructing kidney stone. Obstetrics Ultrasound 12/11/21 08:31 IMPRESSION: 1. Single fetus in vertex presentation with heart rate 141 beats per minute. 2. No sonographic evidence of placental abnormality. Abdomen/Pelvis CT 12/11/21 21:46 IMPRESSION: 1. 12 mm stone at the right ureterovesicular j
[2021-12-13 13:04] VITALS: BP 126/63; PULSE 76
[2021-12-13 13:18] VITALS: TEMP 36.6
--- NOTE | 2021-12-18 08:00 | P.DS_ITS ---
DS: Admitting Diagnosis Discharge Date 12/13/21 Admitting Diagnosis kidney stone OB - DS: Summary OB Procedures : None OB Procedures Intrapartum: Other (undelivered) OB Procedures: : None Peripartum Data Procedures: Procedures Operation Date: 12/12/21 12:30 Actual Procedure Side Surgeon p Cystoscopy, Right Ureteroscopy, Right Stent Placement Right Donny Fang MD Time Spent with Patient Time attestation: Total time spent providing and/or coordinating discharge services: Discharge Plan Discharge Consulting providers: Jaquan Rosenbaum ; Lynda Loving ; Kennedy Delvalle V. ; Donny Fang ; Albina Roberto ; Chong Bishop ; Speedy Dailey Discharging Clinician: Lynda Loving Patient Disposition: Home, Self-Care Activity: as tolerated Diet: as tolerated Discharge Instructions: Urology Instructions: * Call the office to schedule an appt to f/u on your bilateral kidney stones after delivery in the fall. * Remove your stent on Thursday at home. * If you experience blood in the urine, cloudy urine this can be normal, even up to one week after stent removal. * If those symptoms continue one week post stent removal, you develop severe pain or a fever, please contact our office or go to the ER. OB ANTEPARTUM DISCHARGE INSTRUCTIONS This information is given to help you properly care for yourself at home after your discharge from the hospital. Follow these instructions until your doctor tells you otherwise. DIET: Eat Three Well Balanced Meals per Day Drink at Least Eight 8-Ounce Glasses of Caffeine-Free Beverages Daily ACTIVITY: As Tolerated Side Lying Position is Preferable RETURN TO LABOR AND DELIVERY IF YOU HAVE: Any Change In Baby's Normal Movement Pattern Any Leakage of Fluid More than 4 Contractions in an Hour Vaginal Bleeding Contractions may feel like abdominal pain, tightening, cramping, pressure, back ache, or thigh ache. FOLLOW-UP CARE: Call Shaun Loving CNM Office and Make Appointment. Valuables released to patient or family? N/A Medications from home returned to patient? N/A I Have Received Information Regarding Effective Home Pain Management I Acknowledge Receipt of and Understand the Above Instructions IF YOU HAVE ANY QUESTIONS REGARDING THESE INSTRUCTIONS, PLEASE CALL [phone]. IF PROBLEMS ARISE, CALL YOUR PROVIDER. IF EMERGENCY CARE IS NEEDED, [facility]S EMERGENCY ROOM IS AVAILABLE 24 HOURS A DAY. Patient Instructions: Antibiotic Form Stand Alone Forms: General Discharge Information Follow-up/Referrals: Donny Fang MD [Physician] - Lynda Loving CNM [Certified Nurse Zipper Sewing Machine Operator] - Call for Appointment Discharge Medications: New hydrocodone-acetaminophen 5-325 mg tablet 1 tablet PO Q4H PRN (Reason: pain) Qty: 25 RF: 0 ondansetron 8 mg tablet,disintegrating 8 mg PO Q8H Qty: 30 RF: 3 Continued clindamycin HCl 300 mg Capsule 300 mg PO BID Qty: 14 RF: 0 Date of admission: 12/11/21 06:55 Primary Care Provider: UNKNOWN,DOCTOR Admitting Provider: Imelda Lawler Attending physician on admission: Imelda Lawler Condition: Stable
== END 2021-12-13 13:30 | disposition home or self-care (01) ==
PROVIDERS: Advanced Practice Midwife; Urology; Admitting Provider Obstetrics & Gynecology; Visit Provider Obstetrics & Gynecology
PROC: (CPT 52352; principal; 2021-12-12 12:30)
DX: O26.832 Pregnancy related renal disease, second trimester (principal); N13.2 Hydronephrosis with renal and ureteral calculous obstruction; O99.332 Smoking (tobacco) complicating pregnancy, second trimester; F17.210 Nicotine dependence, cigarettes, uncomplicated; Z3A.21 21 weeks gestation of pregnancy
CPT/HCPCS: 52332; 36415; 74176; 76775; 76815; 80053; 85027; 96361; 96365; 96375; 96376; A9270; C1769; C2617; G0378; G0379; J0131; J0696; J1100; J2405; J2704; J3010; J7030; J7120; J7121

== ENCOUNTER 2021-12-29 23:51 | Observation (INO) | payer OTHER, SELFPAY ==
--- NOTE | ~2021-12-29 | US_ITS ---
EXAMINATION: US retroperitoneal comp DATE: 12/30/2021 09:06 INDICATION: Flank pain, recent lithotripsy TECHNIQUE: Multiple grayscale and Doppler ultrasound images of the kidneys were obtained. COMPARISON: CT, 12/11/2021 FINDINGS: The right kidney measures 12.8 x 6.2 x 5.1 cm. Resistive indices are 0.73, 0.67, and 0.58 i n the superior, mid, and inferior kidney, respectively. The left kidney measures 11.4 x 5.0 x 5.7 cm. Resistive indices are 0.72, 0.72, and 0.74 in the superior, mid, and inferior kidney, respectively. There is a 1.4 cm stone of the left kidney upper pole. The kidneys demonstrate normal parenchymal ech ogenicity. Bilateral jets are visualized. There is no hydronephrosis. The bladder is normal. IMPRESSION: 1. Left nephrolithiasis, otherwise normal kidneys without hydronephrosis. Reviewed, dictated and finalized at location A.
[2021-12-30] VITALS (11 sets, daily range): BP systolic 124–134; BP diastolic 56–88; PULSE 71–89; RESP 16–17; TEMP 36.4–36.8; BMI 38.7
--- NOTE | 2021-12-30 00:22 | OBADM ---
This patient, Nas Veliz, admitted to the OB room OB Post 117 for observation. Patient/family oriented to hospital policies and general routines including ID bracelet, bed and alarms, visiting hours, pain management, procedures, bathroom and other care routines, personal items, smoking policy, room service/diet, and visiting hours. Patient/Family are encouraged to report perceived risks to care and to ask questions if they do not understand what they are told or what they should do.
[2021-12-30] MEDS: LACTATED RINGERS 1,000 ML 999 ML IV CONT (00:50)
[2021-12-30 01:18] LABS: Appearance Urine Slightly Cloudy (Clear); Bilirubin Urine Negative (Negative); Blood Urine Negative (Negative); Glucose Urine UA 2+ mg/dL (Negative); Ketones Urine Negative (Negative); Leukocyte Esterase Ur Trace LEU/UL (Negative); Nitrate Urine Negative (Negative); Protein Urine 1+ mg/dL (Negative); Urobilinogen Urine 0.2 mg/dL (<2.0); pH Urine 7.5 (5.0-9.0)
[2021-12-30] MEDS: oxyCODONE HCL (*CRX) 5 MG TAB IR PO ×7 (01:25→21:53)
[2021-12-30 01:27] LABS: Add Urine Microscopic? YES; Color Urine Light Yellow (Yellow)
[2021-12-30] MEDS: LACTATED RINGERS 1,000 ML 100 ML IV CONT ×2 (02:30→13:34)
[2021-12-30] MEDS: ONDANSETRON INJ 4 MG/2 ML VIAL IV PUSH ×3 (06:48→21:08)
--- NOTE | 2021-12-30 07:39 | PM.IMHP ---
H&P: HPI History of Present Illness Date/Time: 12/30/21 07:39 Chief Complaint: right flank pain Narrative: Nas is 25w with known nephrolithiasis s/p stent placement a couple weeks ago. Per pt, a large stone was still present at that time. Over last 24 hours her pain has significantly worsened, requiring admission and narcotics every 4 hours. some nausea, no vomiting. otherwise uncomplicated. Pain overnight 5/10 with oxy every 4 hours. Pain is right side and mid back, similar to her stone pain from last admission. Review of Systems Review of Systems: All systems reviewed & are unremarkable except as noted in HPI and below PMFSH Past Medical History Medical History (Updated 12/30/21 @ 07:42 by Angelique Rashid MD) Anemia Anxiety Depression Fracture multiple Hypertension Miscarriage Scoliosis Surgical History Surgical History H/O adenoidectomy Hx of tonsillectomy Family History Family History Mother Family history of thyroid disease Hypertension Father Hypertension Family history of type 2 diabetes mellitus Grandparent Hypertension Sibling Patient's brother is in good health Family history of type 1 diabetes mellitus, Onset Age: 13 Social History Social History Smoking packs per day: 0.5 Smoking cigarettes per day: 10.0 Years smoked: 5 Smoking pack-years: 2.50 Smoking status: Current every day smoker Tobacco type: cigarettes Second hand tobacco smoke exposure: Yes Alcohol intake: never Substance use: never Gender identity (if verbalized by the patient): Female Spiritual care concerns: No Meds Home Medications and Allergies Home Medications Medication Instructions Recorded Confirmed Type clindamycin HCl 300 mg PO BID #14 cap 12/10/21 12/11/21 Rx hydrocodone-acetaminophen 1 tablet PO Q4H PRN #25 tablet 12/13/21 Rx ondansetron 8 mg PO Q8H #30 tablet 12/13/21 Rx Allergies Allergy/AdvReac Type Severity Reaction Status Date / Time aspirin AdvReac Unknown Abdominal Verified 12/30/21 00:34 Pain amoxicillin AdvReac Rash Verified 12/30/21 00:34 naproxen AdvReac Cramping Verified 12/30/21 00:34 of the Muscles Vital Signs Vital Signs - 24 hr 12/30/21 00:12 12/30/21 00:30 12/30/21 06:55 Temperature Pulse Rate 89 83 72 Respiratory Rate Blood Pressure 129/88 134/76 130/57 L 12/30/21 07:02 Temperature 98.0 F Pulse Rate Respiratory Rate 17 Blood Pressure Exam Const: General: no acute distress Resp: Effort & Inspection: normal respiratory effort Auscultation: clear to auscultation bilaterally Cardio: Rate: regular rate Rhythm: regular rhythm GI: GI Palp: Yes Soft to palpation Extrem: General: normal to inspection H&P: Results Labs Labs: Urine 12/30/21 Range/Units 00:57 Urine Color Light yellow (Yellow) Urine Appearance Slightly cloudy (Clear) Urine pH 7.5 (5.0-9.0) Ur Specific Perry 1.020 (1.001-1.035) Urine Protein 1+ H (Negative) mg/dL Urine Glucose (UA) 2+ H (Negative) mg/dL Assessment and Plan Assessment and plan (1) Kidney stone complicating : Code(s): O26.839 - related renal disease, unspecified trimester; N20.0 - Calculus of kidney Status: Acute (2) Glucosuria: Code(s): R81 - Glycosuria Status: Acute Additional Plan pain control uro to see today- contacted exchange 1hr glucose today since glucosuria
[2021-12-30 09:32] LABS: Glucose 1 Hour PP 50gm Dose 140 mg/dL
--- NOTE | 2021-12-30 12:52 | WPDURCON ---
Assessment and Plan Assessment and plan (1) Bilateral renal stones: Code(s): N20.0 - Calculus of kidney Status: Acute Assessment and Plan: No hydronephrosis on MEGAN today and ureteral jets are visible. The patient's stones are not obstructing. She will f/u after delievery to further evaluate, no need to intervene at this time. (2) Flank pain: Code(s): R10.9 - Unspecified abdominal pain Status: Acute Assessment and Plan: Not of urologic origin, she will need further evaluation of pain. Urology Consult Note HPI Date Seen: 12/30/21 Requesting Physician: Angelique Rashid MD Primary Care Provider: Adalberto Acharya, Consult Narrative Narrative: Nas Veliz is a 26 year old female who presented to OB triage today for acute onset of right flank pain that began on Thursday and gradually worsened, which was accompanied by nausea and vomiting. The pain radiated to her pelvis. She recently was seen by Dr. Lowe while hospitalized at [place] for a 12mm stone that was seen on CT from 12/11/21. She had a cystoscopy with right ureteroscopy and stent placement. The stent was left on a string and she pulled it out on her own 4 days later at home. She states her pain improved after stent removal. The stone was not visualized during ureteroscopy and was of mucous-like material and not composed of stone. She did have bilateral non obstructive stones seen on CT. She was instructed to f/u after delivery for a KUB and further evaluation. Her creatinine at her last hospitalization on 12/11/2021 was 0.70 and WBC is 14.6, no labs have been drawn thus far. She had a negative urine culture at her last visit as well. Her UA today is not suspicious of a UTI. She is afebrile and had a repeat MEGAN today showing no hydronephrosis bilaterally and ureteral jets were visible indicating no obstruction, the left reanl stone was visible. Review of Systems Cardiovascular: Cardiovascular: Denies chest pain Respiratory: Respiratory: Reports no additional respiratory complaints Gastrointestinal: Gastrointestinal: Reports abdominal pain, Reports nausea and Reports vomiting Genitourinary: Genitourinary: Denies hematuria, Reports nocturia, Denies dysuria, Denies pelvic pain, Reports flank pain, Denies urinary incontinence, Denies urinary hesitancy and Reports urinary urgency [facility] Past Medical History Medical History Anemia Anxiety Depression Fracture multiple Hypertension Miscarriage Scoliosis Surgical History Surgical History H/O adenoidectomy Hx of tonsillectomy Family History Family History Mother Family history of thyroid disease Hypertension Father Hypertension Family history of type 2 diabetes mellitus Grandparent Hypertension Sibling Patient's brother is in good health Family history of type 1 diabetes mellitus, Onset Age: 13 Social History Social History Smoking packs per day: 0.5 Smoking cigarettes per day: 10.0 Years smoked: 5 Smoking pack-years: 2.50 Smoking status: Current every day smoker Tobacco type: cigarettes Second hand tobacco smoke exposure: Yes Alcohol intake: never Substance use: never Gender identity (if verbalized by the patient): Female Spiritual care concerns: No Meds Home Medications and Allergies Home Medications Medication Instructions Recorded Confirmed Type clindamycin HCl 300 mg PO BID #14 cap 12/10/21 12/11/21 Rx hydrocodone-acetaminophen 1 tablet PO Q4H PRN #25 tablet 12/13/21 Rx ondansetron 8 mg PO Q8H #30 tablet 12/13/21 Rx Allergies Allergy/AdvReac Type Severity Reaction Status Date / Time aspirin AdvReac Unknown Abdominal Verified 12/30/21 00:34 Pain amoxicillin AdvReac Rash Verified 12/30/21 00:
--- NOTE | 2021-12-30 13:14 | PC.NURSE ---
Spoke with CULLEN Montemayor for Urology. Reports pt stones are non obstructing and her pain is likely from an non urolgic pain. Pt. is ok to eat per CULLEN Montemayor.
--- NOTE | 2021-12-30 13:23 | PC.NURSE ---
Pt condition update and Urology consult update to Dr. Rashid. No New orders.
--- NOTE | 2021-12-30 15:41 | PC.NURSE ---
Spoke ambreen Rashid about patients questions on her plan of care, and continued pain, and concern for yeast infection. Orders received
[2021-12-30] MEDS: CYCLOBENZAPRINE HCL 10 MG TABLET PO (16:01)
[2021-12-30] MEDS: FLUCONAZOLE 100 MG TABLET PO (16:02)
[2021-12-30] MEDS: FLUCONAZOLE 50 MG TABLET PO (16:02)
--- NOTE | 2021-12-30 17:43 | PC.NURSE ---
Updated Dr. Rashid on patient pain level and nausea. Orders received.
[2021-12-30] MEDS: METOCLOPRAMIDE HCL INJ 10 MG/2 ML VIAL 5 MG IV PUSH (17:49)
[2021-12-31 04:37] VITALS: BP 116/63; PULSE 78
[2021-12-31] MEDS: ONDANSETRON INJ 4 MG/2 ML VIAL IV PUSH ×2 (04:37→10:52)
[2021-12-31] MEDS: oxyCODONE HCL (*CRX) 5 MG TAB IR PO (04:38)
[2021-12-31 06:30] VITALS: BP 110/64; PULSE 73; RESP 16; TEMP 36.6; O2SAT 100; O2SAT 99
[2021-12-31 06:35] VITALS: PULSE 68; O2SAT 100
[2021-12-31 07:17] LABS: Glucose Fasting Gestational 98 mg/dL (>/=95)
--- NOTE | 2021-12-31 07:34 | PC.NURSE ---
Dr. Rashid in to see and asses pt. Additional orders received.
--- NOTE | 2021-12-31 07:45 | PM.OBPNVD ---
OB - PN: Subj Subjective Date/time seen: 12/31/21 07:45 Narrative: Pain about the same, right back/flank. 5-01/31 with meds. US with nonobstructing stones, non urological pain per urology, though last time only seen on CT scan. no fever. Denies dysuria, some frequency. Doing 3hr glucose currently. Pain is worse with movment. OB - PN: Obj Data Labs Labs: Laboratory Results - last 24 hr 12/30/21 12/31/21 09:03 06:47 Glucose 1 Hr 50 gm 140 H Gest Glucose Tolerance Imaging Radiologist's impression: Impressions Retroperitoneum Ultrasound 12/30/21 09:18 IMPRESSION: 1. Left nephrolithiasis, otherwise normal kidneys without hydronephrosis. OB - PN A/P Assessment and Plan (1) Flank pain: Code(s): R10.9 - Unspecified abdominal pain Status: Acute (2) Glucosuria: Code(s): R81 - Glycosuria Status: Acute (3) Bilateral renal stones: Code(s): N20.0 - Calculus of kidney Status: Acute Assessment and Plan: repeat UA urine culture non urological per urology discussed risk of CT scan to baby, do not like to do frequently due to radiation strain urine 3 hr glucose today CBC discussed possibility of musculoskeletal pain- heat, flexeril, massage if tolerated pt would like to go hme with flexeril and percocet if work up negative. Time Spent With Patient Time: Total time spent is greater than 50% in coordination of care (as documented) at patient's floor/unit and/or counseling patient:50 min Exam Const: General: cooperative, no acute distress, alert and awake GI: Inspection: normal to inspection Percussion: Yes other (no abdominal or fundal tenderness, no rebound or guarding) Back/Spine/Pelvis: Back: CVA tenderness (right) Skin: General skin exam: normal color and no rashes or lesions noted
[2021-12-31] MEDS: CYCLOBENZAPRINE HCL 10 MG TABLET PO (07:57)
[2021-12-31] MEDS: LACTATED RINGERS 1,000 ML 100 ML IV CONT (07:58)
[2021-12-31 08:18] LABS: Appearance Urine Cloudy (Clear); Bilirubin Urine Negative (Negative); Blood Urine Negative (Negative); Color Urine Yellow (Yellow); Glucose Urine UA 1+ mg/dL (Negative); Ketones Urine Negative (Negative); Leukocyte Esterase Ur Trace LEU/UL (NEGATIVE); Nitrate Urine Negative (Negative); Protein Urine 1+ mg/dL (Negative); Urobilinogen Urine 0.2 mg/dL (<2.0); pH Urine 7.5 (5.0-9.0)
[2021-12-31 08:22] LABS: Amorphous Sediment Urine Few; Bacteria Urine Trace /hpf; Mucus Urine Rare /lpf; RBC Urine 0-2 /hpf (0-2); Squamous Epithelial Cell Urine Moderate /hpf (Few)
[2021-12-31 08:26] LABS: Add Urine Microscopic? YES
[2021-12-31 08:47] LABS: Basophils Percent Auto 0.6 % (0.2-1.2); Eosinophils Absolute Auto 0.1 K/mm3 (0-0.3); Eosinophils Percent Auto 1.9 % (0-4.4); Hematocrit 29.7 % (37.0-47.0); Hemoglobin 9.4 g/dL (12.0-15.0); Immature Granulocyte Absolute 0.04 K/mm3 (0.00-0.031); Immature Granulocyte Percent A 0.6 % (0-0.5); Lymphocytes Absolute Auto 1.89 K/mm3 (0.9-3.2); Lymphocytes Percent Auto 26.1 % (18.3-44.2); Mean Corpuscular HGB Conc 31.6 g/dl (32-36); Mean Corpuscular Volume 85.3 fl (80-100); Mean Platelet Volume 11.5 fl (7.4-10.4); Monocytes Absolute Auto 0.5 K/mm3 (0.1-0.6); Neutrophils Absolute Auto 4.6 K/mm3 (1.3-6.7); Neutrophils Percent Auto 63.8 % (45.5-73.1); Platelet Count Result 168 k/mm3 (150-375); Red Blood Count 3.48 M/mm3 (4.2-5.4); Red Cell Distribution Width 13.7 % (11.5-14.5); White Blood Count 7.2 K/mm3 (4.5-10.0)
[2021-12-31 08:58] LABS: Glucose 1 Hour Gest 162 mg/dL (>/=180)
[2021-12-31 10:15] LABS: Glucose 2 Hour Gest 154 mg/dL (>/= 155)
[2021-12-31 10:38] VITALS: BP 120/59; PULSE 77; PULSE 79; O2SAT 99
[2021-12-31 10:39] VITALS: RESP 16; TEMP 36.4; O2SAT 100
[2021-12-31] MEDS: ACETAMINOPHEN 500 MG TABLET 1000 MG PO (10:55)
[2021-12-31 10:59] LABS: Glucose 3 Hour Gest 101 mg/dL (>/=140)
--- NOTE | 2021-12-31 12:35 | PC.NURSE ---
Pt was laying on side dozing. Has finished lunch. Still rates pain a 5.
--- NOTE | 2021-12-31 13:09 | PC.NURSE ---
1300- Discharge instructions given to patient and IV access removed. Patient agreeable to plan of care.
--- NOTE | 2021-12-31 13:25 | PC.NURSE ---
Family here to give pt a ride.
--- NOTE | 2022-01-07 07:42 | PM.OBTRLD ---
OB - Triage/Final Diagnosis Visit Information Comments/Additional reasons for admission: I have assessed the risk for this patient, Nas Veliz, and determined that she would benefit from observation care. Evaluation Laboratory results: Laboratory Tests 12/30/21 12/30/21 12/31/21 00:57 09:03 06:47 WBC RBC Hgb Hct MCV MCH MCHC RDW Plt Count MPV Immature Gran % (Auto) Neut % (Auto) Lymph % (Auto) [place] % (Auto) Eos % (Auto) Baso % (Auto) Lymph # (Auto) [place] # (Auto) Eos # (Auto) Baso # (Auto) Abs Immat Gran (auto) Absolute Neuts (auto) Absolute Nucleated RBC Nucleated RBC % Glucose 1 Hr 50 gm 140 H Gest Glucose Tolerance Urine Color Light yellow Urine Appearance Slightly cloudy Urine pH 7.5 Ur Specific [place] 1.020 Urine Protein 1+ H Urine Glucose (UA) 2+ H Urine Ketones Negative Ur Blood (Man) Negative Urine Nitrate Negative Urine Bilirubin Negative Urine Urobilinogen 0.2 Ur Leukocyte Esterase Leukocyte Esterase Rfl Trace H Urine RBC Urine WBC Ur Squamous Epith Cells Amorphous Sediment Urine Bacteria Urine Mucus 12/31/21 12/31/21 08:10 08:36 WBC 7.2 RBC 3.48 L Hgb 9.4 L Hct 29.7 L MCV 85.3 MCH 27.0 MCHC 31.6 L RDW 13.7 Plt Count 168 MPV 11.5 H Immature Gran % (Auto) 0.6 H Neut % (Auto) 63.8 Lymph % (Auto) 26.1 [place] % (Auto) 7.0 Eos % (Auto) 1.9 Baso % (Auto) 0.6 Lymph # (Auto) 1.89 [place] # (Auto) 0.5 Eos # (Auto) 0.1 Baso # (Auto) 0.0 Abs Immat Gran (auto) 0.04 H Absolute Neuts (auto) 4.6 Absolute Nucleated RBC 0.0 Nucleated RBC % 0.0 Glucose 1 Hr 50 gm Gest Glucose Tolerance Urine Color Yellow Urine Appearance Cloudy H Urine pH 7.5 Ur Specific [place] 1.020 Urine Protein 1+ H Urine Glucose (UA) 1+ H Urine Ketones Negative Ur Blood (Man) Negative Urine Nitrate Negative Urine Bilirubin Negative Urine Urobilinogen 0.2 Ur Leukocyte Esterase Trace H Leukocyte Esterase Rfl Urine RBC 0-2 Urine WBC 7-9 H Ur Squamous Epith Cells Moderate H Amorphous Sediment Few H Urine Bacteria Trace Urine Mucus Rare Final Diagnosis (1) Nephrolithiasis: Code(s): N20.0 - Calculus of kidney Status: Acute
== END 2021-12-31 13:25 | disposition home or self-care (01) ==
PROVIDERS: Admitting Provider Obstetrics & Gynecology; PCP Family Medicine; Visit Provider Obstetrics & Gynecology
DX: O26.832 Pregnancy related renal disease, second trimester (principal); N20.0 Calculus of kidney; R10.9 Unspecified abdominal pain; Z3A.24 24 weeks gestation of pregnancy; O26.892 Other specified pregnancy related conditions, second trimester; R81 Glycosuria; O99.332 Smoking (tobacco) complicating pregnancy, second trimester; F17.210 Nicotine dependence, cigarettes, uncomplicated
CPT/HCPCS: 36415; 76770; 81001; 82947; 82951; 82952; 85025; 87086; 87088; 96361; 96365; 96374; 96375; 96376; A9270; G0378; G0379; J0131; J2405; J2765; J7120

== ENCOUNTER 2022-03-09 20:55 | Observation (INO) | payer OTHER, SELFPAY ==
--- NOTE | 2022-03-09 20:01 | OBADM ---
This patient, Nas Veliz, admitted to the OB room Labor/Delivery/Recovery 118 for observation. Patient/family oriented to hospital policies and general routines including ID bracelet, bed and alarms, visiting hours, pain management, procedures, bathroom and other care routines, personal items, smoking policy, room service/diet, and visiting hours. Patient/Family are encouraged to report perceived risks to care and to ask questions if they do not understand what they are told or what they should do.
[2022-03-09] MEDS: NIFEdipine 30 MG TAB.ER.24 PO (21:04)
--- NOTE | 2022-03-09 22:24 | PC.NURSE ---
Updated Shaun Loving CNM on maternal assessment including vital signs and contractions. FHT reactive. Orders for discharge received.
--- NOTE | 2022-03-11 07:31 | PM.OBTRLD ---
OB - Triage/Final Diagnosis Visit Information Comments/Additional reasons for admission: I have assessed the risk for this patient, Nas Veliz, and determined that she would benefit from observation care. Final Diagnosis (1) Decreased movement: Code(s): O36.8190 - Decreased movements, unspecified trimester, not applicable or unspecified Status: Acute
== END 2022-03-09 22:45 | disposition home or self-care (01) ==
LOC: ANHOBOP 22:34 → ANHLDR 22:34
PROVIDERS: Admitting Provider Obstetrics & Gynecology; PCP Family Medicine; Visit Provider Obstetrics & Gynecology
DX: O36.8130 Decreased fetal movements, third trimester, not applicable or unspecified (principal); Z3A.34 34 weeks gestation of pregnancy
CPT/HCPCS: 59025; A9270; G0378; G0379

== ENCOUNTER 2022-03-23 00:03 | Outpatient (CLI) | payer OTHER, SELFPAY ==
[2022-03-23 00:34] VITALS: BP 146/94; PULSE 90
[2022-03-23 00:36] LABS: Glucose Point of Care 101 mg/dl (65-105)
[2022-03-23 00:38] LABS: Basophils Percent Auto 0.2 % (0.2-1.2); Eosinophils Absolute Auto 0.1 K/mm3 (0-0.3); Eosinophils Percent Auto 0.9 % (0-4.4); Hematocrit 29.3 % (37.0-47.0); Immature Granulocyte Absolute 0.05 K/mm3 (0.00-0.031); Immature Granulocyte Percent A 0.6 % (0-0.5); Lymphocytes Absolute Auto 2.05 K/mm3 (0.9-3.2); Lymphocytes Percent Auto 23.1 % (18.3-44.2); Mean Corpuscular HGB Conc 30.7 g/dl (32-36); Mean Corpuscular Hemoglobin 24.9 pg (26-34); Mean Corpuscular Volume 81.2 fl (80-100); Mean Platelet Volume 11.9 fl (7.4-10.4); Monocytes Absolute Auto 0.9 K/mm3 (0.1-0.6); Monocytes Percent Auto 10.4 % (2.6-8.5); Neutrophils Absolute Auto 5.7 K/mm3 (1.3-6.7); Neutrophils Percent Auto 64.8 % (45.5-73.1); Platelet Count Result 171 k/mm3 (150-375); Red Blood Count 3.61 M/mm3 (4.2-5.4); White Blood Count 8.9 K/mm3 (4.5-10.0)
[2022-03-23 00:40] LABS: Appearance Urine Cloudy (Clear); Bilirubin Urine Negative (Negative); Blood Urine Negative (Negative); Color Urine Yellow (Yellow); Glucose Urine UA Negative (Negative); Ketones Urine Negative (Negative); Leukocyte Esterase Ur 1+ LEU/UL (NEGATIVE); Nitrate Urine Negative (Negative); Protein Urine Trace mg/dL (Negative); Urobilinogen Urine 0.2 mg/dL (<2.0)
[2022-03-23 00:45] VITALS: BP 142/94; PULSE 93
[2022-03-23 00:45] LABS: Creatinine Urine 84.5 mg/dL
[2022-03-23 00:47] LABS: Alanine Aminotransferase 9 U/L (6-35); Albumin Level 3.1 g/dL (3.5-5.1); Alkaline Phosphatase 118 U/L (38-126); Amorphous Sediment Urine Few; Anion Gap 8 mmol/L (8-16); Aspartate Amino Transferase 12 U/L (14-36); Bacteria Urine Trace /hpf; Bilirubin,Total 0.3 mg/dL (0.2-1.3); Blood Urea Nitrogen 6 mg/dL (7-17); Calcium 9.5 mg/dL (8.4-10.2); Carbon Dioxide 21 mmol/L (22-30); Chloride 108 mmol/L (98-107); Estimated Glomerular Filt Rate > 60; Glucose 100 mg/dL (65-110); Mucus Urine Rare /lpf; Potassium 3.6 mmol/L (3.4-5.0); Sodium 137 mmol/L (137-145); Squamous Epithelial Cell Urine Moderate /hpf (Few); Uric Acid 3.9 mg/dL (2.5-7.5)
[2022-03-23 00:48] LABS: Add Urine Microscopic? YES
[2022-03-23 00:50] LABS: Total Protein Urine Random 38 mg/dL; Ur Ttl Prot Creatinine Ratio 0.45 mg/mg (0-0.20)
[2022-03-23 01:00] VITALS: BP 144/97; PULSE 104
[2022-03-23 01:15] VITALS: BP 140/94; PULSE 92
[2022-03-23 01:30] VITALS: BP 140/84; PULSE 82
[2022-03-23 01:45] VITALS: BP 135/86; PULSE 86
[2022-03-23] MEDS: ACETAMINOPHEN/BUTALBITAL/CAFFEINE 325-50-40 MG TABLET (FIORICET) 1 TAB PO (01:58)
[2022-03-23 01:59] VITALS: BMI 40.1
== END 2022-03-23 04:40 | disposition home or self-care (01) ==
LOC: ANHOBOP 00:07 → ANHOBPP 00:07
PROVIDERS: PCP Family Medicine; Visit Provider Obstetrics & Gynecology
DX: R51.9 Headache, unspecified (principal)
CPT/HCPCS: 36415; 80053; 81001; 82570; 82948; 84156; 84550; 85025; 87086; 87088; 99199; A9270

== ENCOUNTER 2022-03-23 13:04 | Inpatient (IN) | payer OTHER, SELFPAY ==
[2022-03-23] VITALS (140 sets, daily range): BP systolic 104–158; BP diastolic 51–99; PULSE 72–113; RESP 16–18; TEMP 36.3–36.6; O2SAT 97–100; BMI 40.4
[2022-03-23] MEDS: diphenhydrAMINE HCl INJ 50 MG/ML VIAL 25 MG IV PUSH (14:28)
[2022-03-23 14:30] LABS: Basophils Percent Auto 0.3 % (0.2-1.2); Eosinophils Percent Auto 0.5 % (0-4.4); Hematocrit 27.9 % (37.0-47.0); Hemoglobin 8.6 g/dL (12.0-15.0); Immature Granulocyte Absolute 0.03 K/mm3 (0.00-0.031); Immature Granulocyte Percent A 0.4 % (0-0.5); Lymphocytes Absolute Auto 1.52 K/mm3 (0.9-3.2); Lymphocytes Percent Auto 19.9 % (18.3-44.2); Mean Corpuscular HGB Conc 30.8 g/dl (32-36); Mean Corpuscular Hemoglobin 25.2 pg (26-34); Mean Corpuscular Volume 81.8 fl (80-100); Mean Platelet Volume 12.2 fl (7.4-10.4); Monocytes Absolute Auto 0.7 K/mm3 (0.1-0.6); Monocytes Percent Auto 8.9 % (2.6-8.5); Neutrophils Absolute Auto 5.4 K/mm3 (1.3-6.7); Platelet Count Result 150 k/mm3 (150-375); Red Blood Count 3.41 M/mm3 (4.2-5.4); Red Cell Distribution Width 14.1 % (11.5-14.5); White Blood Count 7.7 K/mm3 (4.5-10.0)
[2022-03-23] MEDS: METOCLOPRAMIDE HCL INJ 10 MG/2 ML VIAL IV PUSH (14:30)
[2022-03-23 14:33] LABS: Appearance Urine Cloudy (Clear); Bilirubin Urine Negative (Negative); Blood Urine Negative (Negative); Color Urine Yellow (Yellow); Glucose Urine UA Negative (Negative); Ketones Urine 1+ mg/dL (Negative); Leukocyte Esterase Ur 1+ LEU/UL (Negative); Nitrate Urine Negative (Negative); Protein Urine 1+ mg/dL (Negative); Urobilinogen Urine 0.2 mg/dL (<2.0)
[2022-03-23] MEDS: LACTATED RINGERS 1,000 ML 125 ML IV CONT (14:35)
[2022-03-23 14:37] LABS: Amorphous Sediment Urine Few; Bacteria Urine Trace /hpf; Mucus Urine Rare /lpf; Squamous Epithelial Cell Urine Many /hpf (Few)
[2022-03-23 14:41] LABS: Alanine Aminotransferase 10 U/L (6-35); Albumin Level 2.9 g/dL (3.5-5.1); Alkaline Phosphatase 116 U/L (38-126); Anion Gap 8 mmol/L (8-16); Aspartate Amino Transferase 13 U/L (14-36); Bilirubin,Total 0.3 mg/dL (0.2-1.3); Blood Urea Nitrogen 5 mg/dL (7-17); Calcium 8.4 mg/dL (8.4-10.2); Carbon Dioxide 21 mmol/L (22-30); Chloride 108 mmol/L (98-107); Estimated Glomerular Filt Rate > 60; Glucose 101 mg/dL (65-110); Potassium 3.7 mmol/L (3.4-5.0); Sodium 137 mmol/L (137-145); Uric Acid 4.1 mg/dL (2.5-7.5)
[2022-03-23 14:42] LABS: Add Urine Microscopic? YES
[2022-03-23 14:51] LABS: Creatinine Urine 115.5 mg/dL; Total Protein Urine Random 33 mg/dL; Ur Ttl Prot Creatinine Ratio 0.29 mg/mg (0-0.20)
[2022-03-23] MEDS: ONDANSETRON HCL ODT 4 MG TABLET PO (16:16)
[2022-03-23] MEDS: HYDROcodone/acetaminophen (*CRX) 5-325 MG TABLET 1 TAB PO (16:20)
[2022-03-23] MEDS: MAGNESIUM SULF 4 GM/WATER100ML 4 GM/100 ML BAG IVPB (19:55)
[2022-03-23] MEDS: MAGNESIUM SULF 20GM/WATER500ML 500 ML 50 MG IV CONT (20:28)
--- NOTE | 2022-03-23 21:01 | LDADM ---
This patient, Nas Veliz, was admitted to Labor/Delivery/Recovery 107 on 03/23/22 at 13:04. Plans for labor, pain management and were discussed with patient. Patient/family oriented to hospital policies and general routines including ID bracelet, bed and alarms, visiting hours, pain management, procedures, bathroom and other care routines, personal items, smoking policy, room service/diet and guest tray routines, security routines, and visiting hours. Patient/Family are encouraged to report perceived risks to care and to ask questions if they do not understand what they are told or what they should do. See OBIX for further documentation.
[2022-03-23] MEDS: DINOPROSTONE 10 MG VAG INSERT VAGINAL (21:18)
[2022-03-23] MEDS: ceFAZolin 2 GM/D5W 50 ML 2 GM/50 ML BAG IVPB (21:22)
[2022-03-23 21:57] LABS: Glucose Point of Care 140 mg/dl (65-105)
[2022-03-23] MEDS: INSULIN HUMAN NPH (*BKC) 100 UNITS/ML 20 UNITS SUB-Q (23:32)
[2022-03-24] VITALS (334 sets, daily range): BP systolic 92–173; BP diastolic 50–119; PULSE 69–210; RESP 16–18; TEMP 36.3–36.7; O2SAT 89–100
[2022-03-24] MEDS: LACTATED RINGERS 1,000 ML 75 ML IV CONT ×2 (00:40→07:28)
[2022-03-24 02:14] LABS: Glucose Point of Care 104 mg/dl (65-105)
[2022-03-24] MEDS: fentaNYL CITRATE INJ (*CRX) 100 MCG/2 ML VIAL 50 MCG IV PUSH ×3 (03:37→08:40)
[2022-03-24] MEDS: fentaNYL CITRATE INJ (*CRX) 100 MCG/2 ML VIAL IV PUSH ×3 (04:43→16:53)
[2022-03-24 05:59] LABS: Glucose Point of Care 103 mg/dl (65-105)
[2022-03-24] MEDS: MAGNESIUM SULF 20GM/WATER500ML 500 ML 50 MG IV CONT ×2 (06:17→16:14)
--- NOTE | 2022-03-24 06:40 | WPDANESEPP ---
Anes - Eval Pre Procedure Procedure: labor epidural Date/Time: 03/24/22 06:40 Surgeon: selam Pre Op Diagnosis: PIH Labs Patient Data Age: 26 Gender: F Height: 1.68 m Weight: 113.5 kg Last Vital Signs Temp 36.3 C L 03/24/22 04:30 Pulse 88 03/24/22 06:31 Resp 18 03/24/22 04:30 BP 141/90 H 03/24/22 06:31 Pulse Ox 100 03/24/22 06:40 O2 Del Method Room Air 03/23/22 20:59 Allergies Allergy/AdvReac Type Severity Reaction Status Date / Time amoxicillin Allergy Rash Verified 03/19/22 12:18 aspirin AdvReac Unknown Abdominal Verified 12/30/21 00:34 Pain naproxen AdvReac Cramping Verified 12/30/21 00:34 of the Muscles Home Medications Medication Instructions Recorded Confirmed Type vit no.95-ferrous 1 tablet PO DAILY 12/31/21 03/23/22 History fumarate 28 mg-folic acid 800 mcg tablet () hydrocodone 5 mg-acetaminophen 325 1 tablet PO Q10-12H PRN Pain 03/19/22 03/23/22 History mg tablet insulin NPH isoph U-100 human 100 5 unit subcut DAILY 03/19/22 03/23/22 History unit/mL subcutaneous suspension (Humulin N NPH U-100 Insulin (isophane susp)) insulin NPH isoph U-100 human 100 20 unit subcut HS 03/19/22 03/23/22 History unit/mL subcutaneous suspension (Humulin N NPH U-100 Insulin (isophane susp)) ferrous sulfate 142 mg (45 mg 142 mg PO DAILY 03/23/22 03/23/22 History iron) tablet,extended release (Slow Fe) ondansetron HCl 4 mg tablet 4 mg PO Q6H PRN Nausea And Vomiting 03/23/22 03/23/22 History Laboratory Tests 03/23/22 03/23/22 03/23/22 14:05 14:07 14:07 WBC 7.7 K/mm3 K/mm3 (4.5-10.0) RBC 3.41 M/mm3 L M/mm3 (4.2-5.4) Hgb 8.6 g/dL L g/dL (12.0-15.0) Hct 27.9 % L % (37.0-47.0) MCV 81.8 fl fl (80-100) MCH 25.2 pg L pg (26-34) MCHC 30.8 g/dl L g/dl (32-36) RDW 14.1 % % (11.5-14.5) Plt Count 150 k/mm3 k/mm3 (150-375) MPV 12.2 fl H fl (7.4-10.4) Immature Gran % (Auto) 0.4 % % (0-0.5) Neut % (Auto) 70.0 % % (45.5-73.1) Lymph % (Auto) 19.9 % % (18.3-44.2) [place] % (Auto) 8.9 % H % (2.6-8.5) Eos % (Auto) 0.5 % % (0-4.4) Baso % (Auto) 0.3 % % (0.2-1.2) Lymph # (Auto) 1.52 K/mm3 K/mm3 (0.9-3.2) [place] # (Auto) 0.7 K/mm3 H K/mm3 (0.1-0.6) Eos # (Auto) 0.0 K/mm3 K/mm3 (0-0.3) Baso # (Auto) 0.0 K/mm3 K/mm3 (0.0-0.1) Abs Immat Gran (auto) 0.03 K/mm3 K/mm3 (0.00-0.031) Absolute Neuts (auto) 5.4 K/mm3 K/mm3 (1.3-6.7) Absolute Nucleated RBC 0.0 K/mm3 K/mm3 (0.0-0.012) Nucleated RBC % 0.0 % % (0.0-0.2) Sodium Potassium Chloride Carbon Dioxide Anion Gap BUN Creatinine Estim Creat Clear Calc Estimated GFR Glucose POC Capillary Glucose Uric Acid Calcium Total Bilirubin AST ALT Alkaline Phosphatase Total Protein Albumin Urine Color Urine Appearance Urine pH Ur Specific [place] Urine Protein Urine Glucose (UA) Urine Ketones Ur Blood (Man) Urine Nitrate Urine Bilirubin Urine Urobilinogen Leukocyte Esterase Rfl Urine RBC Urine WBC Ur Squamous Epith Cells Amorphous Sediment Urine Bacteria Hyaline Casts Urine Mucus U Random Total Protein 33 mg/dL mg/dL Urine Creatinine 115.5 mg/dL mg/dL Protein/Creat Ratio 2 0.29 mg/mg H mg/mg (0-0.20) RPR Blood Type A Pos
[2022-03-24] MEDS: ONDANSETRON INJ 4 MG/2 ML VIAL IV PUSH ×2 (07:57→14:02)
--- NOTE | 2022-03-24 09:31 | PM.IMHP ---
H&P: HPI History of Present Illness Date/Time: 03/24/22 09:31 Chief Complaint: headache, elevated bp Narrative: pt arrived to ld for evaluation of slater 8 , without resolution from tylenol, fioricet and benadryl and reglan, bp elevated, mild bilateral swelling, denies epigastric pain. admitted with diagnosis of preeclampsia, magnesium sulfate started and IOL started. complicated by insulin managed gestational diabetes, GBS positive urine, renal calculi bilaterally and has been taking norco daily for pain management PMFSH Past Medical History Medical History Anemia Anxiety Depression Fracture multiple Hypertension Miscarriage Scoliosis Surgical History Surgical History H/O adenoidectomy Hx of tonsillectomy Family History Family History (Updated 03/19/22 @ 12:27 by Kalina Jonas RN) Mother Family history of thyroid disease Hypertension Father Family history of type 2 diabetes mellitus Hypertension Grandparent Hypertension Lung cancer Sibling Patient's brother is in good health Family history of type 1 diabetes mellitus, Onset Age: 13 Other Lymphoma Social History Social History Smoking packs per day: 1 Smoking cigarettes per day: 20.0 Years smoked: 10 Smoking pack-years: 10.00 Smoking status: Former smoker Tobacco type: cigarettes Second hand tobacco smoke exposure: No Smoking end date: 07/24/22 Alcohol intake: never Substance use: never Gender identity (if verbalized by the patient): Female Spiritual care concerns: No Meds Home Medications and Allergies Home Medications Medication Instructions Recorded Confirmed Type vit no.95-ferrous 1 tablet PO DAILY 12/31/21 03/23/22 History fumarate 28 mg-folic acid 800 mcg tablet () hydrocodone 5 mg-acetaminophen 325 1 tablet PO Q10-12H PRN Pain 03/19/22 03/23/22 History mg tablet insulin NPH isoph U-100 human 100 5 unit subcut DAILY 03/19/22 03/23/22 History unit/mL subcutaneous suspension (Humulin N NPH U-100 Insulin (isophane susp)) insulin NPH isoph U-100 human 100 20 unit subcut HS 03/19/22 03/23/22 History unit/mL subcutaneous suspension (Humulin N NPH U-100 Insulin (isophane susp)) ferrous sulfate 142 mg (45 mg 142 mg PO DAILY 03/23/22 03/23/22 History iron) tablet,extended release (Slow Fe) ondansetron HCl 4 mg tablet 4 mg PO Q6H PRN Nausea And Vomiting 03/23/22 03/23/22 History Allergies Allergy/AdvReac Type Severity Reaction Status Date / Time amoxicillin Allergy Rash Verified 03/19/22 12:18 aspirin AdvReac Unknown Abdominal Verified 12/30/21 00:34 Pain naproxen AdvReac Cramping Verified 12/30/21 00:34 of the Muscles Vital Signs Vital Signs - 24 hr 03/23/22 13:29 03/23/22 13:31 03/23/22 13:45 Temperature Pulse Rate 95 98 100 Respiratory Rate Blood Pressure 143/87 H 134/85 132/88 Blood Pressure [Left Arm] Pulse Oximetry Oxygen Delivery 03/23/22 14:00 03/23/22 14:08 03/23/22 14:12 Temperature 36.6 C Pulse Rate 97 Respiratory Rate Blood Pressure 136/88 Blood Pressure [Left Arm] Pulse Oximetry 100 100 Oxygen Delivery 03/23/22 14:30 03/23/22 14:36 03/23/22 14:41 Temperature Pulse Rate 79 Respiratory Rate Blood Pressure 134/82 Blood Pressure [Left Arm] Pulse Oximetry 98 98 Oxygen Delivery 03/23/22 14:45 03/23/22 14:46 03/23/22 14:51 Temperature Pulse Rate 83 Respiratory Rate Blood Pressure 143/86 H Blood Pressure [Left Arm] Pulse Oximetry 99 98 Oxygen Delivery 03/23/22 14:56 03/23/22 15:00 03/23/22 15:01 Temperature Pulse Rate 78 Respiratory Rate Blood Pressure 135/79 Blood Pressure [Left Arm] Pulse Oximetry 99 99 Oxygen Deli
[2022-03-24 09:43] LABS: Glucose Point of Care 104 mg/dl (65-105)
[2022-03-24] MEDS: OXYTOCIN 30 UNITS/NS 500 ML 30 UNITS/500 ML BAG IV CONT (10:27)
[2022-03-24 12:01] LABS: Rapid Plasma Reagin Non-Reactive (NonReactive)
[2022-03-24 14:03] LABS: Glucose Point of Care 103 mg/dl (65-105)
[2022-03-24 18:16] LABS: Glucose Point of Care 117 mg/dl (65-105)
--- NOTE | 2022-03-24 19:19 | PM.OBPRVD ---
OB - Delivery Note Procedure Delivery date: 03/24/22 Procedure: vaginal delivery Events: Gestational Diabetes, Positive Group B Strep (GBS) and Preeclampsia w severe features Induction method: AROM and Per Pitocin Protocol Delivery monitor: External FHT, External Uterine and Internal Uterine Route of delivery: Laceration Description: Perineal - 1st Degree Delivery repair: vicryl Specimen: Yes Quantitative Blood Loss (ml): 89 Anesthesia type: Epidural Disposition: Floor Baby Date of : 03/24/22 Time of : 18:57 Weeks of gestation at delivery: 36 gender: Male Weight (pounds): 7 Weight (ounces): 1 presentation: vertex position: Other (OP) Placenta delivery description: Spontaneous Cord Vessel Description: 3 Vessels, Clamped/Cut and Delayed Cord Clamping score one minute: 9 score five minutes: 9 Narrative: mother and baby skin to skin in stable condition, continue magnesium sulfate x 24 hours
[2022-03-24] MEDS: OXYTOCIN 30 UNITS/NS 500 ML 30 UNITS/500 ML BAG 125 UNITS IV CONT (19:58)
[2022-03-24] MEDS: ACETAMINOPHEN 325 MG TABLET 650 MG PO (20:49)
[2022-03-24] MEDS: LACTATED RINGERS 1,000 ML 125 ML IV CONT (22:00)
[2022-03-24] MEDS: BENZOCAINE 20% AER SPR (*SP) 56 GM CAN 1 SPRAY TOPICAL (22:01)
[2022-03-24] MEDS: WITCH HAZEL 40 PADS 1 PAD TOPICAL (22:01)
--- NOTE | 2022-03-24 22:07 | PC.NURSE ---
Patient transferred to post room #285 per wheelchair from labor and delivery. Support person present. Oriented to unit, room, information board, rooming in, admission packet and security measures. Patient verbalizes understanding.
[2022-03-25] MEDS: MAGNESIUM SULF 20GM/WATER500ML 500 ML 50 MG IV CONT ×2 (02:19→12:04)
[2022-03-25] MEDS: ACETAMINOPHEN 325 MG TABLET 650 MG PO ×2 (03:30→08:56)
[2022-03-25 03:35] VITALS: BP 129/82; PULSE 81; RESP 18; TEMP 36.7
[2022-03-25 06:00] LABS: Hematocrit 25.9 % (37.0-47.0); Hemoglobin 7.8 g/dL (12.0-15.0)
--- NOTE | 2022-03-25 07:20 | WPDANLDPN2 ---
Anes-Prog Note L&D Date/Time: 03/25/22 07:20 Comfortable throughout: labor Neuraxial method: epidural Epidural/Spinal procedure site: clean & non-tender Neuro status: Neuro function grossly intact. Cardiovascular status: normal Respiratory status: normal Airway patency: baseline Mental status: baseline Post-Op hydration status: normal Vital Signs: Last Vital Signs Temp 36.7 C 03/25/22 03:35 Pulse 81 03/25/22 03:35 Resp 18 03/25/22 03:35 BP 129/82 03/25/22 03:35 Pulse Ox 100 03/24/22 19:44 O2 Del Method Room Air 03/23/22 20:59 Pain score (VAS): 1 I/O: Intake & Output 03/24/22 03/24/22 03/25/22 15:59 23:59 07:59 Intake Total 500 1000 Output Total 70 800 Balance 430 200 Patient feedback: Patient satisfied with anesthetic care.
[2022-03-25 07:25] VITALS: BP 130/80; PULSE 79; RESP 16; TEMP 36.6; O2SAT 100
--- NOTE | 2022-03-25 08:15 | PM.OBPNVD ---
OB - PN: Subj Subjective Date/time seen: 03/25/22 08:15 Patient comments: no complaints baby status: doing well OB - PN: Obj Data Labs CBC & Chem 7: 03/25/22 05:42 03/23/22 14:07 Labs: Laboratory Results - last 24 hr 03/23/22 03/24/22 03/24/22 14:07 09:38 14:00 Hgb Hct POC Capillary Glucose 104 103 RPR Non-reactive 03/24/22 03/25/22 18:11 05:42 Hgb 7.8 L Hct 25.9 L POC Capillary Glucose 117 H RPR OB - PN A/P Plan day: 1 Plan: routine care Time Spent With Patient Time: Total time spent is greater than 50% in coordination of care (as documented) at patient's floor/unit and/or counseling patient: Time with patient: less than 15 minutes Review of Systems Review of Systems: All systems reviewed & are unremarkable except as noted in HPI and below Exam Narrative: Fundus firm and vaginal flow controlled. No lower ext redness, warmth, or edema. Negative homans. Denies h/a, v/d or e/p. Reflexes normal. Const: General: comfortable Chest: Breast/axilla inspection: normal inspection of the breasts Resp: Effort & Inspection: normal respiratory effort Cardio: Rate: regular rate GI: GI Palp: Yes Soft to palpation Psych: Appearance: grossly normal Affect: normal affect Attitude: cooperative Thought content: Yes Normal thought content present Judgement: Good judgement present (Psych)
[2022-03-25 08:56] VITALS: BP 130/80; PULSE 79; RESP 16; TEMP 36.6; O2SAT 100
[2022-03-25] MEDS: MULTIVIT/MIN/PREN/FOL AC/IRON TABLET 1 TAB PO (08:59)
[2022-03-25] MEDS: DOCUSATE SODIUM 100 MG CAPSULE PO ×2 (08:59→17:48)
[2022-03-25] MEDS: POLYSACCHARIDE IRON COMPLEX 150 MG CAPSULE PO ×2 (08:59→17:48)
[2022-03-25] MEDS: ONDANSETRON HCL ODT 4 MG TABLET PO (12:03)
[2022-03-25] MEDS: LACTATED RINGERS 1,000 ML 75 ML IV CONT (12:04)
[2022-03-25 12:59] VITALS: BP 135/82; PULSE 80; RESP 18; TEMP 36.6; TEMP 36.7; O2SAT 100
[2022-03-25] MEDS: HYDROcodone/acetaminophen (*CRX) 5-325 MG TABLET 1 TAB PO ×3 (13:26→21:49)
--- NOTE | 2022-03-25 13:58 | PC.NURSE ---
[id number] Introductions were made, then consulted with patient to assess needs related to . Mother led the conversation with her?plans to feed?her infant and the?experience so far. Mother states she is attempting to latch with a nipple shield and bottle feeding. Encouraged understanding of the benefits of skin to skin (unwrapping infant and placing vertically on her chest), responsive feeding and how to watch for early feeding signs, frequency of feeding on demand about every 8-12 times in 24 hours (every 2-3 hours), milk production, duration of feeding, signs of adequate intake/output and how to record on the feeding sheet. Resources provided for inpatient and outpatient services using a resource guide and mom/baby guide. Resources provided and reviewed to facilitate learning were used with the mom and baby guide. Mother voiced understanding of responsive feedings, stimulating with skin to skin, working with 36 EGA infant, hand expressed colostrum, touch, talking to infant to encourage if it has been 2 -3 hours since the start of the last , to call if does not latch or there is discomfort with . Discussed the risks and benefits of using a nipple shield, bottle feeding, and pumping for a good milk supply. Mother is primarily bottle feeding her infant. Resources provided for inpatient and outpatient services using a resource guide and mom/baby guide. Mother voiced understanding of information and will call if there is a request for assistance. Reported to primary RN.
[2022-03-25 17:45] VITALS: BP 121/80; PULSE 74; RESP 16; TEMP 36.9; O2SAT 96
[2022-03-25 20:30] VITALS: BP 149/84; PULSE 70; RESP 18; TEMP 36.8; O2SAT 100
[2022-03-26 00:35] VITALS: BP 134/81; PULSE 70; RESP 16; TEMP 36.8; O2SAT 99
[2022-03-26] MEDS: HYDROcodone/acetaminophen (*CRX) 5-325 MG TABLET 1 TAB PO ×2 (03:34→10:01)
[2022-03-26 04:45] VITALS: BP 155/90; PULSE 66; RESP 18; TEMP 36.9; O2SAT 99
[2022-03-26 07:30] VITALS: BP 142/87; PULSE 80; RESP 16; TEMP 36.8; O2SAT 99
--- NOTE | 2022-03-26 07:37 | PM.OBPNVD ---
OB - PN: Subj Subjective Date/time seen: 03/26/22 07:37 s/p vaginal delivery day 2, magnesium sulfate d/c'd OB - PN: Obj Data Labs CBC & Chem 7: 03/25/22 05:42 03/23/22 14:07 OB - PN A/P Plan day: 2 Plan: routine care and discharge home Time Spent With Patient Time: Total time spent is greater than 50% in coordination of care (as documented) at patient's floor/unit and/or counseling patient: Review of Systems Review of Systems: All systems reviewed & are unremarkable except as noted in HPI and below Exam Const: General: cooperative, healthy appearing and comfortable
--- NOTE | 2022-03-26 07:42 | P.DS_ITS ---
DS: Admitting Diagnosis Discharge Date 03/26/22 Admitting Diagnosis preeclampsia OB - DS: Summary OB Procedures : None OB Procedures Intrapartum: Spontaneous Vag Delivery OB Procedures: : None Time Spent with Patient Time attestation: Total time spent providing and/or coordinating discharge services: DS: Data Data Completed and Pending Pending studies at discharge: Pending at discharge 03/24/22 19:05 Surgical [PTH] Routine Discharge Plan Discharge Attending physician on discharge: Imelda Lawler Discharging Clinician: Lynda Loving Patient Disposition: Home, Self-Care Activity: pelvic rest Diet: regular Patient Instructions: Antibiotic Form Stand Alone Forms: General Discharge Information Follow-up/Referrals: Lynda Loving, NORMAM [Certified Nurse Supervisor [employer]] - 1 Week Discharge Medications: New hydrocodone-acetaminophen 5-325 mg Tablet 1 tablet PO Q4H PRN (Reason: Pain Rated 4-6) Qty: 20 0RF polysaccharide iron complex 150 mg iron Capsule 150 mg PO BIDWM Qty: 60 0RF Continued PNV cmb#95-ferrous fumarate-FA [] 28 mg iron- 800 mcg Tablet 1 tablet PO DAILY Discontinued hydrocodone-acetaminophen [[place]] 5-325 mg Tablet 1 tablet PO Q10-12H PRN (Reason: Pain) Humulin N NPH U-100 Insulin 100 unit/mL Suspension 20 unit SUBCUT HS Humulin N NPH U-100 Insulin 100 unit/mL Suspension 5 unit subcut DAILY ondansetron HCl [Zofran] 4 mg Tablet 4 mg PO Q6H PRN (Reason: Nausea And Vomiting) Slow Fe 142 mg (45 mg iron) Tablet Extended Release 142 mg PO DAILY Date of admission: 03/23/22 13:04 Primary Care Provider: Patrizia,Adalberto Admitting Provider: Imelda Lawler Attending physician on admission: Imelda Lawler Condition: Stable
[2022-03-26] MEDS: DOCUSATE SODIUM 100 MG CAPSULE PO (10:02)
[2022-03-26] MEDS: POLYSACCHARIDE IRON COMPLEX 150 MG CAPSULE PO (10:02)
[2022-03-26] MEDS: MULTIVIT/MIN/PREN/FOL AC/IRON TABLET 1 TAB PO (10:02)
[2022-03-26 12:06] VITALS: BP 137/76; PULSE 71; RESP 16; TEMP 36.4; O2SAT 99
--- NOTE | 2022-03-26 12:54 | PC.NURSE ---
0900 - Consulted with patient to assess needs related to . Mother led the conversation with her?plans to bottle feed?her . Resources provided for inpatient and outpatient services using a resource guide and mom/baby guide. Mother voiced understanding of information and will call if there is a request for assistance. Reported to primary RN.
--- NOTE | 2022-03-26 19:39 | PC.NURSE ---
0900 Patient viewed the discharge video Mother & Baby Care, The First Two Weeks . Patient was given the opportunity and encouraged to ask questions. Patient verbalized understanding of information shared and has been given the mother/baby guide for home reference.
[2022-03-28 10:44] VITALS: BP 135/98; PULSE 71; RESP 20; TEMP 36.9; O2SAT 98
== END 2022-03-26 14:40 | disposition home or self-care (01) | DRG 560 ==
LOC: ANHLAB 18:41 → ANHOBPP 18:41 → ANHLAB 18:42 → ANHOBPP 18:42 → ANHLDR 19:04 → ANHOB2 03-24 22:16
PROVIDERS: Advanced Practice Midwife; Admitting Provider Obstetrics & Gynecology; PCP Family Medicine; Visit Provider Obstetrics & Gynecology
DX: O14.14 Severe pre-eclampsia complicating childbirth (principal); Z37.0 Single live birth; Z3A.36 36 weeks gestation of pregnancy; O70.0 First degree perineal laceration during delivery; O24.424 Gestational diabetes mellitus in childbirth, insulin controlled; O99.824 Streptococcus B carrier state complicating childbirth; O99.02 Anemia complicating childbirth; D64.9 Anemia, unspecified
CPT/HCPCS: 36415; 80053; 81001; 82570; 82948; 84156; 84550; 85014; 85018; 85025; 86592; 86850; 86900; 86901; 87086; 88307; 99199; A9270; J0690; J1200; J1815; J2405; J2590; J2765; J2795; J3010; J3475; J7120

== ENCOUNTER 2022-06-19 11:42 | Outpatient (CLI) | payer OTHER, SELFPAY ==
[2022-06-19 12:13] LABS: Hematocrit 34.3 % (37.0-47.0); Hemoglobin 10.5 g/dL (12.0-15.0)
== END 2022-06-19 11:43 | disposition home or self-care (01) ==
LOC: ANHSURGERY 11:45
PROVIDERS: Anesthesiology; PCP Family Medicine; Visit Provider Obstetrics & Gynecology
DX: Z01.818 Encounter for other preprocedural examination (principal); D64.9 Anemia, unspecified
CPT/HCPCS: 36415; 85014; 85018

== ENCOUNTER 2022-06-24 00:51 | Day surgery (SDC) | payer OTHER, SELFPAY ==
[2022-06-18 15:30] VITALS: BMI 35.6
--- NOTE | 2022-06-18 15:39 | PC.NURSE ---
PRE-OP INSTRUCTIONS, PLEASE READ CAREFULLY Report to the Outpatient Waiting Room, entrance under the green pavilion located off [facility], at time _0630_ on date _06/24/22_. Planned Procedure Time: _0830_. Time changes happen often and if your time is changed the preop area will call you the afternoon before. - You and your visitor will be asked to self-screen and do not enter if you have any COVID symptoms. - We encourage only one visitor and NO visitors under age 16 are allowed at this time. Your visitor will receive communication by the phone number that is given day of service. - The patient visitor is requested to social distance or may leave the building when not with patient due to restrictions. - A mask is required within the hospital. Patients may have clear liquids (water, carbonated beverages, clear teas, apple juice) until 3 hours prior to surgery (0530 AM) with a maximum of 20 ounces. - No food from midnight until time of surgery Take the following medications with a SIP of water the morning of surgery _ADDERALL, LEXAPRO, & KLONOPIN IF NEEDED__ Medications to discontinue per physician ___N/A__, Date to take last dose Please no make-up, nail stateless, hairspray, perfume, deodorant, or body powder the day of surgery. No jewelry (including any body piercings) or valuables the day of surgery, leave them at home. Please take a shower or bath the night before, or the morning of, surgery with an antibacterial soap. Wear comfortable, loose fitting clothing. - Jewelry must be removed prior to entering the operating room. Rings and piercings that are not removed may be cut off. - The hospital will not accept responsibility for valuables. - Please leave all valuables, including medications, at home the day of surgery. If you are going home after surgery, a licensed restaurant delivery driver must drive you home. - NO public transportation without another adult. - We recommend that an adult stay with you for 24 hours following discharge. - We also recommend that you do not drive, make important decision, drink alcoholic beverages, or take any drugs that were not prescribed by your health care provider for at least 24 hours after your discharge time. Follow any additional instructions given to you from your surgeon. If you or anyone in your household have experienced Covid symptoms in the past week, please notify your surgeon or the nurse liaison at the phone number below for possible testing. Telephone instructions given to __PT and asked if any additional questions and then verbalized understanding. Patient advised to call surgeon office or pre surgery nurse liaison [phone] if any additional questions.
[2022-06-24] VITALS (10 sets, daily range): BP systolic 122–141; BP diastolic 72–86; PULSE 51–72; RESP 12–16; TEMP 36.2–36.3; O2SAT 100
[2022-06-24] MEDS: ACETAMINOPHEN 500 MG TABLET 1000 MG PO (06:50)
[2022-06-24] MEDS: LACTATED RINGERS 1,000 ML 30 ML IV CONT ×2 (07:09→10:10)
--- NOTE | 2022-06-24 08:00 | WPDANESEPPF ---
Anes - Initial Pre Proc Eval Procedure: Operation Date: 06/24/22 08:30 Proposed Procedures p Bilateral Laparoscopic Salpingectomy - Imelda Lawler MD s Hysteroscopy with Catherine Endometrial Ablation - Imelda Lawler MD Date/Time: 06/24/22 08:00 Surgeon: Imelda Lawler MD Pre Op Diagnosis: sterilization, menorrhagia Patient Data Age: 26 Gender: F Height: 1.68 m Weight: 100.8 kg Last Vital Signs Temp 36.2 C L 06/24/22 06:43 Pulse 66 06/24/22 06:43 Resp 16 06/24/22 06:43 BP 129/79 06/24/22 06:43 Pulse Ox 100 06/24/22 06:43 O2 Del Method Room Air 06/24/22 06:43 Allergies Allergy/AdvReac Type Severity Reaction Status Date / Time amoxicillin Allergy Rash Verified 06/24/22 06:48 aspirin AdvReac Unknown Abdominal Verified 06/24/22 06:48 Pain naproxen AdvReac Cramping Verified 06/24/22 06:48 of the Muscles Home Medications Medication Instructions Recorded Confirmed Type clonazepam 1 mg tablet 1 mg BID PRN Anxiety 06/18/22 06/24/22 History dextroamphetamine-amphetamine 20 20 mg QAM 06/18/22 06/24/22 History mg tablet escitalopram oxalate 20 mg tablet 20 mg QAM 06/18/22 06/24/22 History Patient hx anesthesia problems: none Family hx anesthesia problems: none Results Review: All pre-operative results and documents have been reviewed as part of the pre-operative evaluation. [facility] Past Medical History Medical History Anemia Anxiety Depression Fracture multiple Hypertension Miscarriage Scoliosis Surgical History Surgical History H/O adenoidectomy Hx of tonsillectomy Family History Family History Mother Family history of thyroid disease Hypertension Father Family history of type 2 diabetes mellitus Hypertension Grandparent Hypertension Lung cancer Sibling Patient's brother is in good health Family history of type 1 diabetes mellitus, Onset Age: 13 Other Lymphoma Social History Social History Smoking packs per day: 2 Smoking cigarettes per day: 40.0 Years smoked: 7 Smoking pack-years: 14.00 Smoking status: Former smoker Tobacco type: cigarettes and e-cigarettes/vaping Second hand tobacco smoke exposure: Yes Smoking end date: 07/24/21 Additional smoking assessment comments: STATES DAILY VAPING Alcohol intake: never Substance use: never Substance use type: does not use Living arrangements: with family Gender identity (if verbalized by the patient): Female Spiritual care concerns: No Anes - Eval Final PreProcedure Day of Procedure 06/24/22 08:00 Patient weight: obese Heart: regular rate and rhythm Lungs: clear to auscultation Airway: Mallampati scale class II Neurological: alert and oriented Last oral intake: >/= 8 hours ASA classification: III Emergent: no Anesthetic plan: proceed Anesthesia type and monitoring: general ETT and standard monitoring Results Review: All pre-operative results and documents have been reviewed as part of the pre-operative evaluation. Informed Consent: The patient's anesthetic plan and its attendant risks and benefits were discussed with the patient/family/POA. Questions were solicited and answers provided to the satisfaction of the patient/family/POA.
--- NOTE | 2022-06-24 08:40 | WPDHPUPDATE1 ---
History and Physical Update Update Date/Time: 06/24/22 08:40 History and Physical has been reviewed, including an updated exam of the patient. There are NO changes in the patient's condition. Risks, benefits, and alternatives have been discussed and questions answered. Patient agrees to proceed with procedure.
--- NOTE | 2022-06-24 10:05 | P.OP_ITS ---
Procedure Note - Detailed Date of Procedure 06/24/22 Pre-op Diagnosis sterilization, menorrhagia Post-op Diagnosis Same Procedure Performed Laparoscopic bilateral salpingectomy with endometrial ablation and hysteroscopy. Surgeon Imelda Lawler MD Anesthesia General Indications Menorrhagia, female sterilization Description of Procedure Patient was taken the operating room. She has prepped draped in the dorsal lithotomy position after induction of general anesthesia. A 5 mm abdominal incision was made in left upper quadrant of the abdomen with scalpel. A 5 mm trocars inserted the intra-abdominal cavity under direct visualization of the scope. Pneumoperitoneum was achieved. A 5 mm periumbilical incision was made using a scalpel on the abdominal scan. A 5 mm trocar was inserted the intra- abdominal cavity under visualization of the scope. A 5 mm incision made left lower quadrant of the abdomen. A 5 mm trocar was inserted the intra-abdominal cavity and direct visualization of the scope. The bilateral fallopian tubes were removed. The paratubal tissue in the area of the uterus was grasped with the LigaSure cautery and transected after being cauterized. The paratubal tissue from the ovary to the uterine cornu was cauterized and transected with LigaSure cautery. This was all done in a bilateral fashion. The tube was transected at the area of the uterine cornua and the tubes was removed through the 5 mm trocar site. The pneumoperitoneum was reduced. The trocars were removed. The skin was closed with subcuticular 4 Monocryl and covered with Dermabond. Our attention was then turned to the endometrial ablation portion of the procedure. A speculum was placed in the vagina. The cervix was grasped with a tenaculum. The cervix was dilated to approximately 8 mm with Garcia dilators. The hysteroscope was inserted. And the below findings were noted. All of the intrauterine surfaces were curettaged with a medium-size curette and the specimens were collected. Measurements of the cervix were taken using the uterine sound and the hysteroscope. The intrauterine cavity measurements were entered into the handpiece. The device was inserted into the intrauterine cavity and the array was expanded. The balloon cuff was inflated. When an adequate seal was formed the safety and energy cycles were initiated and completed. The array was collapsed, the balloon was deflated. The insert was withdrawn. The hysteroscope was reinserted and a well desiccated intrauterine cavity was observed. The patient was taken recovery room stable condition. Sponge lap and needle counts were correct x2. She tolerated the procedure well. Estimated Blood Loss -5.0 Pathology Yes Complications No immediate complications Condition Stable Disposition PACU
[2022-06-24] MEDS: fentaNYL CITRATE INJ (*CRX) 100 MCG/2 ML VIAL 25 MCG IV PUSH ×4 (10:27→10:55)
[2022-06-24] MEDS: oxyCODONE HCL (*CRX) 5 MG TAB IR PO (11:46)
[2022-06-24] MEDS: ONDANSETRON INJ 4 MG/2 ML VIAL IV PUSH (11:47)
== END 2022-06-24 12:13 | disposition home or self-care (01) ==
PROVIDERS: PCP Family Medicine; Visit Provider Obstetrics & Gynecology
PROC: (CPT 49320; principal; 2022-06-24 08:30)
PROC: 0U5B8ZZ Destruction of Endometrium, Via Natural or Artificial Opening Endoscopic (ICD-10-PCS; CPT 58563; 2022-06-24 08:30)
DX: N92.0 Excessive and frequent menstruation with regular cycle (principal); Z30.2 Encounter for sterilization; N84.1 Polyp of cervix uteri; N83.8 Other noninflammatory disorders of ovary, fallopian tube and broad ligament; F41.9 Anxiety disorder, unspecified; F32.A Depression, unspecified; F17.290 Nicotine dependence, other tobacco product, uncomplicated; E66.9 Obesity, unspecified; Z68.35 Body mass index [BMI] 35.0-35.9, adult
CPT/HCPCS: 58563; 58661; 88302; 88305; A9270; J1100; J2250; J2405; J2704; J3010; J7030; J7120

== ENCOUNTER 2023-07-10 18:01 | Emergency (ER) | payer OTHER, MEDICAID, SELFPAY ==
[2023-07-10] VITALS (14 sets, daily range): BP systolic 115–135; BP diastolic 60–98; PULSE 66–77; RESP 15–22; TEMP 36.6; O2SAT 98–100
--- NOTE | ~2023-07-10 | CT_ITS ---
EXAMINATION: CT abdomen pelvis w con DATE: 07/10/2023 23:46 INDICATION: Flank pain TECHNIQUE: Computed tomography (CT) of the abdomen and pelvis was performed with 100 mL Omnipaque-350 intravenous contrast. Automated exposure control and iterative reconstruction technique were employe d. The dose-length product was 1088.16 mGy-cm. COMPARISON: CT dated 12/11/2021 FINDINGS: Lung bases are clear. Heart size is normal. No pericardial or pleural effusion. Liver, gallbladder, s pleen, pancreas and bilateral adrenal glands are normal. There are few <2 mm bilateral renal stones. No hydronephrosis or stones seen along the course of the ureters. Bilateral kidneys enhance symmetric ally with no hypoenhancing region suspicious for pyelonephritis. Birch catheter within the decompress ed bladder. Anteverted uterus and bilateral adnexa are unremarkable. Bowels including the appendix ar e normal. No free intraperitoneal gas or fluid. No pathologically enlarged abdominal or pelvic lympha denopathy. 5 nonrib bearing lumbar segments with a 6 transitional lumbosacral segment, lumbarized on the right and 6 less than the left. IMPRESSION: 1. Bilateral nephrolithiasis. No ureteral stones, hydronephrosis or findings to suggest pyelonephriti s. Reviewed, dictated and finalized at location A. [employer] IMPRESSION: 1. Bilateral nephrolithiasis. No ureteral stones, hydronephrosis or findings to suggest pyelonephritis.
[2023-07-10 21:50] LABS: Appearance Urine Turbid (Clear); Bacteria Urine 4+ /hpf; Bilirubin Urine Negative (Negative); Blood Urine 2+ (Negative); Color Urine Yellow (Yellow); Glucose Urine UA Negative (Negative); Hyaline Casts Urine Present /lpf; Ketones Urine Trace mg/dL (Negative); Leukocyte Esterase Ur 1+ LEU/UL (Negative); Nitrate Urine Positive (Negative); Non Pathogenic Casts >20; Protein Urine 1+ mg/dL (Negative); RBC Urine 21-50 /hpf (0-2); Specific Grav Ur 1.024 (1.001-1.035); Squamous Epithelial Cell Urine None seen /hpf (Few); WBC Urine 21-50 /hpf; pH Urine 6.5 (5.0-9.0)
[2023-07-10 22:15] LABS: Add Urine Microscopic? YES
[2023-07-10 22:52] LABS: Basophils Percent Auto 0.4 % (0.2-1.2); Eosinophils Absolute Auto 0.2 K/mm3 (0-0.3); Eosinophils Percent Auto 2.4 % (0-4.4); Hematocrit 35.7 % (37.0-47.0); Immature Granulocyte Absolute 0.02 K/mm3 (0.00-0.031); Immature Granulocyte Percent A 0.2 % (0-0.5); Lymphocytes Absolute Auto 2.68 K/mm3 (0.9-3.2); Lymphocytes Percent Auto 32.4 % (18.3-44.2); Mean Corpuscular HGB Conc 30.8 g/dl (32-36); Mean Corpuscular Hemoglobin 26.8 pg (26-34); Mean Corpuscular Volume 86.9 fl (80-100); Monocytes Absolute Auto 0.5 K/mm3 (0.1-0.6); Monocytes Percent Auto 6.5 % (2.6-8.5); Neutrophils Absolute Auto 4.8 K/mm3 (1.3-6.7); Neutrophils Percent Auto 58.1 % (45.5-73.1); Platelet Count Result 200 k/mm3 (150-375); Red Blood Count 4.11 M/mm3 (4.2-5.4); Red Cell Distribution Width 14.1 % (11.5-14.5); White Blood Count 8.3 K/mm3 (4.5-10.0)
[2023-07-10 23:05] LABS: Alanine Aminotransferase 18 U/L (6-35); Alkaline Phosphatase 60 U/L (38-126); Anion Gap 9 mmol/L (8-16); Aspartate Amino Transferase 18 U/L (14-36); Bilirubin,Total 0.4 mg/dL (0.2-1.3); Blood Urea Nitrogen 8 mg/dL (7-17); Calcium 9.3 mg/dL (8.4-10.2); Carbon Dioxide 24 mmol/L (22-30); Chloride 107 mmol/L (98-107); Estimated CRCL calculation 141 ml/min; Estimated Glomerular Filt Rate > 60; Glucose 89 mg/dL (65-110); Potassium 3.9 mmol/L (3.4-5.0); Sodium 140 mmol/L (137-145)
[2023-07-10 23:45] LABS: Lipase 25 U/L (23-300)
--- NOTE | 2023-07-10 23:46 | PC.NURSE ---
Pt to CT at this time.
[2023-07-10] MEDS: SODIUM CHLORIDE 0.9% IV 1,000 ML 999 ML IV CONT (23:59)
[2023-07-11] MEDS: ONDANSETRON INJ 4 MG/2 ML VIAL IV PUSH
[2023-07-11] MEDS: MORPHINE SULFATE (*CRX) 4 MG/ML INJ IV PUSH
[2023-07-11 00:01] VITALS: BP 117/73; PULSE 80; RESP 19; O2SAT 98
[2023-07-11 00:16] VITALS: BP 120/78; RESP 19; O2SAT 99
[2023-07-11 00:31] VITALS: BP 110/66; PULSE 88; RESP 19; O2SAT 99
--- NOTE | 2023-07-11 00:38 | ED.FEMALEGU ---
HPI - Female Genitourinary General Chief complaint: Urogenital-Female Stated complaint: possible uti, catheter Time Seen by Provider: 07/10/23 23:18 History of Present Illness HPI Narrative: 27-year-old female with an indwelling Birch catheter reports for evaluation for abdominal bloating, nausea, bladder spasms and pain, and vomiting. Patient states on June 30, she developed sudden onset urinary retention. She went to into the emergency department on July 01 and was straight cathed, then sent home. States she was unable to urinate again on July 02, then went back to the ER and had a Birch placed which she was sent home with. On July 04, the patient began developing suprapubic pain, low back pain and vomiting. States she removed the Birch catheter herself on that day thinking it was contributing to her symptoms. The following day, she had another catheter placed secondary to urinary retention. Throughout this course of events, the patient has been prescribed Flomax, oxybutynin and hydrocodone. She follows with Urology, Dr. Reich at [facility] due to history of kidney stones and stent placement. Her last kidney stone surgical removal was last July. Today, patient states she developed vomiting, worsened suprapubic and low back pain and was advised to come to the ER for further evaluation by her urologist. Her urologist also recommended her Birch be changed. Her last bowel movement was yesterday and normal. LMP June 15, 2023. She denies fever, chest pain or shortness of breath, vaginal discharge or concern for STDs. Related Data Home Medications Medication Instructions Recorded Confirmed clonazepam 1 mg tablet 1 mg BID PRN Anxiety 06/18/22 06/24/22 dextroamphetamine-amphetamine 20 20 mg QAM 06/18/22 06/24/22 mg tablet escitalopram oxalate 20 mg tablet 20 mg QAM 06/18/22 06/24/22 Allergies Allergy/AdvReac Type Severity Reaction Status Date / Time NSAIDS (Non-Steroidal Allergy Intermediate Stomach Verified 07/10/23 18:19 Anti-Inflamma pain amoxicillin Allergy Rash Verified 07/10/23 18:19 aspirin AdvReac Unknown Abdominal Verified 07/10/23 18:19 Pain naproxen AdvReac Cramping Verified 07/10/23 18:19 of the Muscles Review of Systems Review of Systems: CONSTITUTIONAL: Denies fever, chills, or sweats. EYES: Denies visual changes, redness, or discharge. ENT: Denies rhinorrhea, congestion, sore throat, or otalgia. CARDIOVASCULAR: Denies chest pain, palpitations, or edema. RESPIRATORY: Denies cough or dyspnea. GASTROINTESTINAL: Denies abdominal pain, nausea, vomiting, or diarrhea. GENITOURINARY: See HPI SKIN: Denies rash or itching. MUSCULOSKELETAL: See HPI NEUROLOGIC: Denies headache, numbness, or weakness. PSYCHIATRIC: Denies anxiety or depression. [facility] Past Medical History Medical History Anemia Anxiety Depression Fracture multiple History of gestational hypertension Miscarriage Scoliosis Surgical History Surgical History H/O adenoidectomy History of bilateral tubal ligation History of endometrial ablation Hx of tonsillectomy Family History Family History Mother Family history of thyroid disease Hypertension Father Family history of type 2 diabetes mellitus Hypertension Grandparent Hypertension Lung cancer Sibling Patient's brother is in good health Family history of type 1 diabetes mellitus, Onset Age: 13 Other Lymphoma Social History Social History Smoking packs per day: 2 Smoking cigarettes per day: 40.0 Years smoked: 7 Smoking pack-years: 14.00 Smoking status: Former smoker Tobacco type: cigarettes and e-cigarettes/vaping Second hand tobacco smoke exposure: Yes Smoking end date: 07/24/21
[2023-07-11 00:46] VITALS: BP 112/86; PULSE 86; RESP 20; O2SAT 100
== END 2023-07-11 01:45 | disposition home or self-care (01) ==
PROVIDERS: Student in an Organized Health Care Education/Training Program; Emergency Provider Physician Assistant
DX: N12 Tubulo-interstitial nephritis, not specified as acute or chronic (principal); N32.89 Other specified disorders of bladder; D64.9 Anemia, unspecified; Z87.891 Personal history of nicotine dependence
CPT/HCPCS: 36415; 74177; 80053; 81001; 81025; 83690; 85025; 87077; 87086; 87186; 96361; 96365; 96375; 99284; J0696; J2270; J2405; J7030; Q9967